=== PATIENT | female | born 1995 | race African-American/Black ===

== ENCOUNTER 2021-06-03 16:03 | Emergency (ER) | payer BC, SELFPAY ==
[2021-06-03 16:06] VITALS: BP 113/78; PULSE 86; RESP 16; TEMP 36.8; O2SAT 100
--- NOTE | 2021-06-03 17:00 | ED.NAVMDI ---
HPI - Nausea/Vomiting/Diarrhea General Chief complaint: Nausea/Vomiting/Diarrhea Stated complaint: headache, nausea Time Seen by Provider: 06/03/21 16:25 Source: patient Mode of arrival: ambulatory Limitations: no limitations History of Present Illness HPI Narrative: Patient is a 26-year-old female complaining of frontal headache accompanied by nausea and vomiting that started 3 days ago. Patient describes her headache as dull, mild, 3 out of 10, nonradiating. Patient denies any dizziness, neck pain or stiffness, speech or visual disturbance, focal weakness or numbness, unsteady gait, fever or chills. Related Data Allergies Allergy/AdvReac Type Severity Reaction Status Date / Time No Known Allergies Allergy Verified 06/03/21 16:09 Review of Systems Review of Systems: All systems reviewed & are unremarkable except as noted in HPI and below Constitutional: Constitutional: Denies body ache(s), Denies chills, Denies excessive sweating, Denies fatigue, Denies fever(s), Denies headache(s), Denies lethargy, Denies malaise, Denies weakness and Denies weight loss Eyes: Eyes: Denies blurry vision, Denies change in vision and Denies loss of vision ENT: Denies dizziness, Denies ear discharge, Denies headache(s), Denies lip swelling, Denies epistaxis, Denies nasal congestion, Denies neck pain, Denies throat swelling and Denies tongue swelling Cardiovascular: Cardiovascular: Denies chest pain, Denies chest pain at rest, Denies chest pain with activity, Denies diaphoresis, Denies rapid heart rate, Denies edema, Denies irregular heart rhythm, Denies lightheadedness, Denies palpitations, Denies dyspnea and Denies dyspnea on exertion Respiratory: Respiratory: Denies chest congestion, Denies cough, Denies hemoptysis, Denies dyspnea and Denies dyspnea on exertion Gastrointestinal: Gastrointestinal: Denies abdominal pain, Denies melena, Denies hematochezia, Denies diarrhea and Denies hematemesis Musculoskeletal: Musculoskeletal: Denies abnormal gait, Denies deformity, Denies joint swelling, Denies limited range of motion, Denies neck pain and Denies numbness Neurologic: Denies Abnormal speech present, Denies abnormal gait, Denies confusion, Denies dizziness, Denies focal weakness, Denies loss of vision, Denies numbness, Denies Other visual disturbances, Denies Sensory deficit (Neuro) and Denies weakness Psychiatric: Psychiatric: Denies confusion, Denies depression, Denies auditory hallucinations, Denies homicidal ideation and Denies suicidal ideation Endocrine: Endocrine: Denies cold intolerance, Denies excessive sweating, Denies fatigue, Denies heat intolerance and Denies palpitations Hematologic/Lymphatic: Hematologic/Lymphatic: Denies easy bleeding and Denies easy bruising Allergic/Immunologic: Allergic/Immunologic: Denies lip swelling, Denies throat swelling and Denies tongue swelling PMFSH Comments Past medical history: None Family history: Negative for aneurysm, dissection, stroke, heart attack Social history: Non-smoker, occasional EtOH use, no drug use Exam Const: General: cooperative, healthy appearing, comfortable, no acute distress, well developed, alert and awake; No confusion Orientation/consciousness: oriented to person, oriented to place, oriented to time, patient oriented x3 and No confusion Limitations: no limitations HENMT: Head: normal to inspection, normocephalic and atraumatic Ears: hearing grossly normal bilaterally, TM normal on the right and TM normal on the left General nose exam: Normal external nose present, Normal nares present and No nasal discharge present Face and sinus: normal facial exam Mouth: Yes Normal oral and palatal mucosa present, Yes lip normal, Yes tongue normal and Yes oropharynx normal Throat: posterior oropharynx normal, tonsils normal and uvula midline Eyes: General: appearance normal, both eyes and all related structures Pupils: Equal, round and reactive pupils present EOM: EOMs intact bilaterally
[2021-06-03] MEDS: SODIUM CHLORIDE 0.9% IV 1,000 ML 999 ML IV CONT (17:29)
[2021-06-03] MEDS: PROMETHAZINE HCL 25 MG/ML AMPUL 12.5 MG IV PUSH (17:32)
[2021-06-03 17:41] LABS: Basophils Percent Auto 0.8 % (0.2-1.2); Eosinophils Absolute Auto 0.1 K/mm3 (0-0.3); Hematocrit 31.2 % (37.0-47.0); Hemoglobin 11.5 g/dL (12.0-15.0); Immature Granulocyte Absolute 0.01 K/mm3 (0.00-0.031); Immature Granulocyte Percent A 0.2 % (0-0.5); Lymphocytes Absolute Auto 2.42 K/mm3 (0.9-3.2); Lymphocytes Percent Auto 50.7 % (18.3-44.2); Mean Corpuscular HGB Conc 36.9 g/dl (32-36); Mean Corpuscular Hemoglobin 31.9 pg (26-34); Mean Corpuscular Volume 86.4 fl (80-100); Mean Platelet Volume 8.6 fl (7.4-10.4); Monocytes Absolute Auto 0.7 K/mm3 (0.1-0.6); Monocytes Percent Auto 15.5 % (2.6-8.5); Neutrophils Absolute Auto 1.5 K/mm3 (1.3-6.7); Neutrophils Percent Auto 31.8 % (45.5-73.1); Platelet Count Result 193 k/mm3 (150-375); Red Blood Count 3.61 M/mm3 (4.2-5.4); Red Cell Distribution Width 13.2 % (11.5-14.5); White Blood Count 4.8 K/mm3 (4.5-10.0)
[2021-06-03 17:53] LABS: Alanine Aminotransferase 15 U/L (4-35); Albumin Level 3.9 g/dL (3.5-5.1); Alkaline Phosphatase 47 U/L (38-126); Anion Gap 1 mmol/L (8-16); Aspartate Amino Transferase 24 U/L (14-36); Bilirubin,Total 0.4 mg/dL (0.2-1.3); Blood Urea Nitrogen 9 mg/dL (7-17); Calcium 8.5 mg/dL (8.4-10.2); Carbon Dioxide 24 mmol/L (22-30); Chloride 106 mmol/L (98-107); Estimated CRCL calculation 94 ml/min; Estimated Glomerular Filt Rate > 60; Glucose 92 mg/dL (65-110); Lipase 47 U/L (23-300); Potassium 3.3 mmol/L (3.4-5.0); Sodium 131 mmol/L (137-145)
[2021-06-03 18:01] LABS: Add Urine Microscopic? YES; Appearance Urine Clear (Clear); Bacteria Urine Trace /hpf; Bilirubin Urine Negative (Negative); Blood Urine 1+ (Negative); Color Urine Yellow (Yellow); Glucose Urine UA Negative (Negative); Ketones Urine Negative (Negative); Leukocyte Esterase Ur Negative LEU/UL (Negative); Mucus Urine Heavy /lpf; Nitrate Urine Negative (Negative); Protein Urine Negative (Negative); Specific Grav Ur 1.027 (1.001-1.035); Squamous Epithelial Cell Urine Moderate /hpf (Few)
[2021-06-03 18:08] LABS: Atypical Lymphocytes Present; Platelet Estimate Adequate (Adequate)
[2021-06-03 18:23] VITALS: BP 103/67; PULSE 78; RESP 18; O2SAT 100
--- NOTE | 2021-06-03 19:01 | PC.NURSE ---
Talked to Lonnie in lab at 19:01 to add on Beta HCG Quant
== END 2021-06-03 19:11 | disposition home or self-care (01) ==
PROVIDERS: Emergency Provider Emergency Medicine
DX: O21.9 Vomiting of pregnancy, unspecified (principal); O23.40 Unspecified infection of urinary tract in pregnancy, unspecified trimester; Z3A.00 Weeks of gestation of pregnancy not specified
CPT/HCPCS: 36415; 80053; 81001; 81025; 83690; 84702; 85025; 96361; 96374; 99284; J2550; J7030

== ENCOUNTER 2021-06-27 08:56 | Emergency (ER) | payer BC, SELFPAY ==
[2021-06-27 09:07] VITALS: BP 110/65; PULSE 79; RESP 16; TEMP 36.9; O2SAT 99
--- NOTE | 2021-06-27 09:10 | ED.URI ---
HPI - URI/Sore Throat General Chief Complaint: Upper Respiratory Infection Stated Complaint: nausea/caputo/no appetite Time Seen by Provider: 06/27/21 09:10 Source: patient Mode of arrival: ambulatory Limitations: no limitations Related Data Allergies Allergy/AdvReac Type Severity Reaction Status Date / Time No Known Allergies Allergy Verified 06/03/21 16:09 Course Vital Signs Vital signs: Vital Signs Temperature 36.9 C 06/27/21 09:07 Pulse Rate 79 06/27/21 09:07 Respiratory Rate 16 06/27/21 09:07 Blood Pressure 110/65 06/27/21 09:07 Pulse Oximetry 99 06/27/21 09:07 Temperature 36.9 C 06/27/21 09:07 Pulse Rate 79 06/27/21 09:07 Respiratory Rate 16 06/27/21 09:07 Blood Pressure 110/65 06/27/21 09:07 Pulse Oximetry 99 06/27/21 09:07 Discharge Plan Discharge Prescriptions: No Action pyridoxine (vitamin B6) 50 mg tablet 50 mg PO TID Qty: 15 RF: 0 cephalexin 250 mg capsule 250 mg PO Q12H 3 Days Qty: 6 RF: 0
--- NOTE | 2021-06-27 09:29 | ED.GENADULT ---
HPI - General Adult General Chief complaint: Nausea/Vomiting/Diarrhea Stated complaint: nausea/caputo/no appetite Time Seen by Provider: 06/27/21 09:10 Source: patient Mode of arrival: ambulatory Limitations: no limitations History of Present Illness HPI narrative: 26 yo F presents with c/o fatigue, N/V, no appetite, headaches for 1.5 wks. About two wks ago pt had an . thinks she was 6 wks at that time. [facility] Denies vaginal bleeding. Denies ABD pain. Afebrile. All systems reviewed and negative except as noted above. Related Data Allergies Allergy/AdvReac Type Severity Reaction Status Date / Time No Known Allergies Allergy Verified 06/03/21 16:09 Review of Systems Review of Systems: CONSTITUTIONAL: Denies fever, chills, or sweats. Reports fatigue, Decreased appetite. EYES: Denies visual changes, redness, or discharge. ENT: Denies rhinorrhea, congestion, sore throat, or otalgia. CARDIOVASCULAR: Denies chest pain, palpitations, or edema. RESPIRATORY: Denies cough or dyspnea. GASTROINTESTINAL: Denies abdominal pain. reports nausea, vomiting. Denies diarrhea. GENITOURINARY: Denies dysuria or hematuria. SKIN: Denies rash or itching. MUSCULOSKELETAL: Denies back pain, joint pain, or myalgia. NEUROLOGIC: Denies headache, numbness, or weakness. PSYCHIATRIC: Denies anxiety or depression. All other systems reviewed are negative, except as documented in HPI. PMFSH Comments At time of signature, agree with nursing past medical, surgical, social and family history. There is no relevant family history pertinent to the presenting complaint. Exam Narrative: GENERAL: This is a well-nourished, well-developed patient, in no apparent distress. HEAD: normocephalic, atraumatic. EYES: PERRL. Sclera clear/white. Vision is grossly intact. EARS: External ears normal, auditory canals clear and without drainage, TMs normal without perforation. Hearing grossly intact. NOSE: External nose normal with no obvious nasal discharge, nares without redness, no rhinorrhea. THROAT: Mucous membranes moist, posterior pharynx clear. NECK: Neck supple, non-tender without lymphadenopathy, masses or thyromegaly. CARDIOVASCULAR: Regular rate and rhythm without murmurs, gallops, or rubs. RESPIRATORY: Clear to auscultation. Breath sounds equal bilaterally. No wheezes, rales, or rhonchi. GASTROINTESTINAL: Abdomen soft, non-tender, nondistended. Bowel sounds are active. No hepato-splenomegaly, or palpable masses. No guarding. SKIN: warm, Dry, intact with no suspicious lesions or rash, good texture and turgor. NEURO: awake, alert, and oriented to person, place and time. There were no obvious focal neurologic abnormalities. EXTREMITIES: No joint tenderness, effusion, or edema noted. No calf tenderness. Negative Homans sign bilaterally. BACK: Nontender without deformity. No CVA tenderness. Course Course Level of Care: Express Care Visit Vital Signs Vital signs: Vital Signs Temperature 36.9 C 06/27/21 09:07 Pulse Rate 79 06/27/21 09:07 Respiratory Rate 16 06/27/21 09:07 Blood Pressure 110/65 06/27/21 09:07 Pulse Oximetry 99 06/27/21 09:07 Temperature 36.9 C 06/27/21 09:07 Pulse Rate 79 06/27/21 09:07 Respiratory Rate 16 06/27/21 09:07 Blood Pressure 110/65 06/27/21 09:07 Pulse Oximetry 99 06/27/21 09:07 Reviewed Transfer Transfered to: [place] Transfer rationale: further evaluation with lab and ultrasound for retained products Accepting physician: myla Weldon Medical Decision Making MDM Narrative Medical decision making narrative: Patient is aware of diagnosis, understands and agrees to treatment plan. Anticipatory guidance given. Patient agrees to follow-up as directed and is aware of reasons to seek care at the emergency department. Portions of this record may have been created with voice recognition software Pt had medication induced about 2 w
== END 2021-06-27 09:43 | disposition short-term general hospital (02) ==
PROVIDERS: Emergency Provider Nurse Practitioner Family
DX: R53.83 Other fatigue (principal); R11.2 Nausea with vomiting, unspecified
CPT/HCPCS: 81003; 81025; 99212; G0463

== ENCOUNTER 2021-06-27 09:59 | Emergency (ER) | payer BC, SELFPAY ==
--- NOTE | ~2021-06-27 | CT_ITS ---
EXAMINATION: CT brain wo con INDICATION: Headache COMPARISON: None TECHNIQUE: Standard unenhanced head CT. The dose-length product (DLP) was 605.33 mGy-cm. The mA was a djusted according to patient size. Iterative reconstruction technique was employed. FINDINGS: There is no intracranial hemorrhage, acute infarction, or abnormal mass lesion. The ventric les are normal. There is no abnormal mass effect or midline shift. The hayden-white matter differentiat ion is normal. The basal cisterns are patent. The orbits are normal. The paranasal sinuses, mastoids and calvarium are normal. IMPRESSION: 1. No acute intracranial abnormality. Reviewed, dictated and finalized at location B. [employer]
[2021-06-27 10:03] VITALS: BP 110/78; PULSE 87; RESP 18; TEMP 36; O2SAT 100
[2021-06-27 11:00] VITALS: BP 107/70; PULSE 85; RESP 14; O2SAT 100
--- NOTE | 2021-06-27 11:07 | ED.HA ---
HPI - Headache General Chief Complaint: Headache Stated Complaint: nausea, headache Time Seen by Provider: 06/27/21 10:52 Source: patient Mode of arrival: ambulatory Limitations: no limitations History of Present Illness HPI Narrative: Patient is 26 years old -[place] female been complaining of intermittent frontal headache aching for 1 and half week. Maximum 6 out of 10, patient denies aggravating factors, sometimes gets better on Aleve. 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 Patient reports that her headache is associated with nausea and decreased appetite and lack of sleep. Patient denies any fever, chills, chest pain, shortness of breath, back pain, abdominal pain or urinary symptoms Related Data Allergies Allergy/AdvReac Type Severity Reaction Status Date / Time No Known Allergies Allergy Verified 06/27/21 11:19 Review of Systems Review of Systems: CONSTITUTIONAL: Denies fever, chills, or sweats. EYES: Denies visual changes, redness, or discharge. ENT: Denies rhinorrhea, congestion, sore throat, or otalgia. CARDIOVASCULAR: Denies chest pain, palpitations, or edema. RESPIRATORY: Denies cough or dyspnea. GASTROINTESTINAL: Denies abdominal pain, nausea, vomiting, or diarrhea. GENITOURINARY: Denies dysuria or hematuria. SKIN: Denies rash or itching. MUSCULOSKELETAL: Denies back pain, joint pain, or myalgia. NEUROLOGIC: Denies headache, numbness, or weakness. PSYCHIATRIC: Stress, lack of sleep Exam Narrative: General appearance: Well-developed, well-nourished, laying down in bed, comfortable, not in any pain or distress Skin: Normal color Head: Normocephalic, nontraumatic Eyes: Clear conjunctiva ENT: Oropharynx normal, ears normal, nose normal Neck: Supple, nontender Chest and respiratory: Airway patent, no respiratory distress, no accessory muscle use Heart: Regular rate/rhythm Abdomen: Soft, nontender, no organomegaly, quiet bowel sounds Vascular: Normal peripheral pulses, normal capillary refill. Musculoskeletal: Normal range of motion, nontender back Neurologic: Alert and oriented ?3, CH[employer] SEAT [employer]ER is normal as tested, no gross motor deficit Course Course Emergency Course: Stable Vital Signs Vital signs: Vital Signs Temperature 36.0 C L 06/27/21 10:03 Pulse Rate 87 06/27/21 10:03 Respiratory Rate 18 06/27/21 10:03 Blood Pressure 110/78 06/27/21 10:03 Pulse Oximetry 100 06/27/21 10:03 Temperature 36.0 C L 06/27/21 10:03 Pulse Rate 80 06/27/21 12:00 Respiratory Rate 14 06/27/21 12:00 Blood Pressure 98/58 L 06/27/21 12:00 Pulse Oximetry 100 06/27/21 12:00 MDM - Headache Differential Diagnosis Differential diagnosis: Likely migraine, tension headache and headache Lab Data Result diagrams: 06/27/21 11:20 06/27/21 11:20 Labs: Lab Results 06/27/21 06/27/21 06/27/21 Range/Units 11:20 11:20 13:02 WBC 6.4 (4.5-10.0) K/mm3 RBC 3.40 L (4.2-5.4) M/mm3 Hgb 10.8 L (12.0-15.0) g/dL Hct 29.5 L (37.0-47.0) % MCV 86.8 (80-100) fl MCH 31.8 (26-34) pg MCHC 36.6 H (32-36) g/dl RDW 13.3 (11.5-14.5) % Plt Count 196 (150-375) k/mm3 MPV 8.3 (7.4-10.4) fl Immature Gran % (Auto) 0.2 (0-0.5) % Neut % (Auto) 17.9 L (45.5-73.1) % Lymph % (Auto) 69.7 H (18.3-44.2) % [place] % (Auto) 10.3 H (2.6-8.5) % Eos % (Auto) 1.6 (0-4.4) % Baso % (Auto) 0.3 (0.2-1.2) % Lymph # (Auto) 4.45 H (0.9-3.2) K/mm3 [place] # (Auto) 0.7 H (0.1-0.6) K/mm3 Eos # (Auto) 0.1 (0-0.3) K/mm3 Baso # (Auto) 0.0 (0.0-0.1) K/mm3 Abs Immat Gran (auto) 0.01 (0.00-0.031)
--- NOTE | 2021-06-27 11:14 | PC.NURSE ---
pt. to ct
[2021-06-27] MEDS: KETOROLAC 30 MG/ML VIAL (*BKC) IV PUSH (11:20)
[2021-06-27] MEDS: METOCLOPRAMIDE HCL INJ 10 MG/2 ML VIAL IV PUSH (11:20)
[2021-06-27] MEDS: diphenhydrAMINE HCl INJ 50 MG/ML VIAL 25 MG IV PUSH (11:20)
[2021-06-27] MEDS: SODIUM CHLORIDE 0.9% IV 1,000 ML 999 ML IV CONT (11:21)
[2021-06-27 11:30] LABS: Basophils Percent Auto 0.3 % (0.2-1.2); Eosinophils Absolute Auto 0.1 K/mm3 (0-0.3); Eosinophils Percent Auto 1.6 % (0-4.4); Hematocrit 29.5 % (37.0-47.0); Hemoglobin 10.8 g/dL (12.0-15.0); Immature Granulocyte Absolute 0.01 K/mm3 (0.00-0.031); Immature Granulocyte Percent A 0.2 % (0-0.5); Lymphocytes Absolute Auto 4.45 K/mm3 (0.9-3.2); Lymphocytes Percent Auto 69.7 % (18.3-44.2); Mean Corpuscular HGB Conc 36.6 g/dl (32-36); Mean Corpuscular Hemoglobin 31.8 pg (26-34); Mean Corpuscular Volume 86.8 fl (80-100); Mean Platelet Volume 8.3 fl (7.4-10.4); Monocytes Absolute Auto 0.7 K/mm3 (0.1-0.6); Monocytes Percent Auto 10.3 % (2.6-8.5); Neutrophils Absolute Auto 1.1 K/mm3 (1.3-6.7); Neutrophils Percent Auto 17.9 % (45.5-73.1); Platelet Count Result 196 k/mm3 (150-375); Red Cell Distribution Width 13.3 % (11.5-14.5); White Blood Count 6.4 K/mm3 (4.5-10.0)
[2021-06-27 11:48] LABS: Alanine Aminotransferase 54 U/L (4-35); Albumin Level 3.9 g/dL (3.5-5.1); Alkaline Phosphatase 46 U/L (38-126); Anion Gap 7 mmol/L (8-16); Aspartate Amino Transferase 37 U/L (14-36); Bilirubin,Total 0.3 mg/dL (0.2-1.3); Blood Urea Nitrogen 12 mg/dL (7-17); Calcium 8.3 mg/dL (8.4-10.2); Carbon Dioxide 23 mmol/L (22-30); Chloride 105 mmol/L (98-107); Estimated CRCL calculation 129 ml/min; Estimated Glomerular Filt Rate > 60; Glucose 86 mg/dL (65-110); Potassium 3.7 mmol/L (3.4-5.0); Sodium 135 mmol/L (137-145)
[2021-06-27 12:00] VITALS: BP 98/58; PULSE 80; RESP 14; O2SAT 100
--- NOTE | 2021-06-27 12:47 | PC.NURSE ---
pt. attempting to void
[2021-06-27 13:25] LABS: Add Urine Microscopic? YES; Appearance Urine Clear (Clear); Bacteria Urine Trace /hpf; Bilirubin Urine Negative (Negative); Blood Urine 1+ (Negative); Color Urine Yellow (Yellow); Glucose Urine UA Negative (Negative); Ketones Urine Negative (Negative); Leukocyte Esterase Ur Negative LEU/UL (Negative); Mucus Urine Rare /lpf; Nitrate Urine Negative (Negative); Protein Urine Negative (Negative); RBC Urine 0-2 /hpf (0-2); Specific Grav Ur 1.013 (1.001-1.035); Squamous Epithelial Cell Urine Rare /hpf (Few); Urobilinogen Urine Negative mg/dL (<2.0); WBC Urine 0-3 /hpf
[2021-06-27 14:39] VITALS: BP 107/70; PULSE 76; RESP 16; O2SAT 99
== END 2021-06-27 14:41 | disposition home or self-care (01) ==
PROVIDERS: Emergency Provider Emergency Medicine
DX: R51.9 Headache, unspecified (principal)
CPT/HCPCS: 36415; 70450; 80053; 81001; 81003; 81025; 85025; 96361; 96374; 96375; 99284; J1200; J1885; J2765; J7030

== ENCOUNTER 2021-09-15 13:27 | Emergency (ER) | payer BC, SELFPAY ==
--- NOTE | 2021-09-15 13:34 | ED.FEMALEGU ---
HPI - Female Genitourinary General Chief complaint: Urogenital-Female Stated complaint: uti Time Seen by Provider: 09/15/21 13:34 Source: patient Mode of arrival: ambulatory Limitations: no limitations History of Present Illness HPI Narrative: 26-year-old female presents with complaint of urinary frequency, urgency, dysuria since yesterday. Reports today she has having some abdominal cramping. No vaginal bleeding. No fever chills. No nausea vomit diarrhea. Patient had in May. Has been following up with her OB due to elevated hCG levels. Is scheduled for an ultrasound next week. All systems reviewed and negative except as noted above. Related Data Allergies Allergy/AdvReac Type Severity Reaction Status Date / Time No Known Allergies Allergy Verified 09/15/21 13:32 Review of Systems Review of Systems: CONSTITUTIONAL: Denies fever, chills, or sweats. EYES: Denies visual changes, redness, or discharge. ENT: Denies rhinorrhea, congestion, sore throat, or otalgia. CARDIOVASCULAR: Denies chest pain, palpitations, or edema. RESPIRATORY: Denies cough or dyspnea. GASTROINTESTINAL: Denies abdominal pain, nausea, vomiting, or diarrhea. GENITOURINARY: Reports frequency, urgency, dysuria. Denies hematuria. SKIN: Denies rash or itching. MUSCULOSKELETAL: Denies back pain, joint pain, or myalgia. NEUROLOGIC: Denies headache, numbness, or weakness. PSYCHIATRIC: Denies anxiety or depression. All other systems reviewed are negative, except as documented in HPI. PMFSH Comments At time of signature, agree with nursing past medical, surgical, social and family history. There is no relevant family history pertinent to the presenting complaint. Exam Narrative: GENERAL: This is a well-nourished, well-developed patient, in no apparent distress. HEAD: normocephalic, atraumatic. EYES: PERRL. Sclera clear/white. Vision is grossly intact. EARS: External ears normal NOSE: External nose normal NECK: Neck supple, non-tender without lymphadenopathy, masses or thyromegaly. CARDIOVASCULAR: Regular rate and rhythm without murmurs, gallops, or rubs. RESPIRATORY: Clear to auscultation. Breath sounds equal bilaterally. No wheezes, rales, or rhonchi. SKIN: warm, Dry, intact with no suspicious lesions or rash, good texture and turgor. NEURO: awake, alert, and oriented to person, place and time. There were no obvious focal neurologic abnormalities. EXTREMITIES: Normal range of motion to all extremities. BACK:No CVA tenderness. Course Course Level of Care: Express Care Visit Vital Signs Vital signs: Vital Signs Temperature 36.9 C 09/15/21 13:42 Pulse Rate 84 09/15/21 13:42 Respiratory Rate 16 09/15/21 13:42 Blood Pressure 104/56 L 09/15/21 13:42 Pulse Oximetry 99 09/15/21 13:42 Oxygen Delivery Room Air 09/15/21 13:42 Temperature 36.9 C 09/15/21 13:42 Pulse Rate 84 09/15/21 13:42 Respiratory Rate 16 09/15/21 13:42 Blood Pressure 104/56 L 09/15/21 13:42 Pulse Oximetry 99 09/15/21 13:42 Oxygen Delivery Room Air 09/15/21 13:42 Reviewed MDM - Female Genitourinary MDM Narrative Medical decision making narrative: Patient is aware of diagnosis, understands and agrees to treatment plan. Anticipatory guidance given. Patient agrees to follow-up as directed and is aware of reasons to seek care at the emergency department. Portions of this record may have been created with voice recognition software Lab Data Labs: Urine Glucose Negative Reference Range: Negative Urine Bilirubin Negative Reference Range: Negative Urine Ketone Trace Reference Range: Negative Urine Specific [place] 1.025 Reference Range:1.001-1.035
[2021-09-15 13:42] VITALS: BP 104/56; PULSE 84; RESP 16; TEMP 36.9; O2SAT 99
== END 2021-09-15 13:51 | disposition home or self-care (01) ==
PROVIDERS: Emergency Provider Nurse Practitioner Family
DX: N39.0 Urinary tract infection, site not specified (principal)
CPT/HCPCS: 81003; 87077; 87086; 87186; 99213; G0463

== ENCOUNTER 2022-02-20 10:52 | Emergency (ER) | payer BC, SELFPAY ==
[2022-02-20 10:59] VITALS: BP 113/69; PULSE 90; RESP 16; TEMP 36.9; O2SAT 98
--- NOTE | 2022-02-20 11:28 | ED.URI ---
HPI - URI/Sore Throat General Chief Complaint: Upper Respiratory Infection Stated Complaint: uri Time Seen by Provider: 02/20/22 11:28 Source: patient, RN notes reviewed and old records reviewed Mode of arrival: ambulatory Limitations: no limitations History of Present Illness HPI Narrative: 26-year-old female presents to the [facility] with complaints 2 days of body aches, feeling feverish, fatigue, headache and sore throat. Has tried a couple [id number] products such as Mucinex with minimal relief. Reports son was sick last week. She just started with symptoms on Saturday. Related Data Home Medications Medication Instructions Recorded Confirmed medroxyprogesterone 150 mg/mL 150 mg IM [id number] 02/20/22 02/20/22 intramuscular syringe Allergies Allergy/AdvReac Type Severity Reaction Status Date / Time No Known Allergies Allergy Verified 02/20/22 11:38 Review of Systems Review of Systems: All systems reviewed & are unremarkable except as noted in HPI and below Constitutional: Constitutional: Reports as per HPI, Reports chills, Reports fatigue and Reports fever(s) Eyes: Eyes: Reports no additional eye complaints ENT: Reports as per HPI Cardiovascular: Cardiovascular: Reports no additional cardiovascular complaints Respiratory: Respiratory: Reports no additional respiratory complaints Gastrointestinal: Gastrointestinal: Reports no additional gastrointestinal complaints Musculoskeletal: Musculoskeletal: Reports no additional musculoskeletal complaints Integumentary/Breasts: Skin/Breast: Reports system reviewed and no additional complaints, except as docu Neurologic: Reports system reviewed and no additional complaints, except as documented Psychiatric: Psychiatric: Reports no additional psychiatric complaints Allergic/Immunologic: Allergic/Immunologic: Reports no additional allergic/immunologic complaints PMFSH Past Medical History Medical History (Updated 02/20/22 @ 19:34 by Angelique Olson APRN) No significant medical problems Surgical History Surgical History (Updated 02/20/22 @ 19:34 by Angelique Olson APRN) No pertinent past surgical history Comments At the time of my signature, I reviewed and agree with the nursing past medical, surgical, social, and family history. There is no relevant family history pertinent to the patient complaint. Exam Const: General: no acute distress, alert, ill appearing acutely (Mild) and well nourished Nutritional Appearance: well nourished Orientation/consciousness: patient oriented x3 Limitations: no limitations HENMT: Head: normal to inspection Ears: external ears normal, TM's normal bilaterally and EAC's normal Face/Nose/Sinus: Normal external nose present and Normal nares present Face and sinus: normal facial exam Throat: posterior oropharynx normal and uvula midline Eyes: General: appearance normal, both eyes and all related structures Conjunctivae: conjunctivae normal Pupils: Equal, round and reactive pupils present Neck: Neck: normal visual inspection, no lymphadenopathy and no meningeal signs Chest: Chest palpation & inspection: normal inspection of the chest Resp: Effort & Inspection: normal respiratory effort and no use of accessory muscles Auscultation: clear to auscultation bilaterally, no crackles, no rales, no rhonchi and no wheezes Cardio: Rate: regular rate Rhythm: regular rhythm Skin: General skin exam: normal color Rashes: no rashes Wounds: no wounds Neuro: General: patient oriented x3, moves all extremities, no meningeal signs and no focal motor deficits Cranial nerves: Yes Equal, round and reactive pupils present Speech: normal speech Gait exam (Neuro): Normal gait present Extrem: General: normal to inspection, full ROM and capillary refill normal Psych: Appearance: grossly normal and well kempt Mental Status: mental status grossly normal Affect: normal affect Attitude: cooperative Thought content: Yes Normal
== END 2022-02-20 12:18 | disposition home or self-care (01) ==
PROVIDERS: Emergency Provider Nurse Practitioner
DX: B34.9 Viral infection, unspecified (principal); Z20.822 Contact with and (suspected) exposure to COVID-19
CPT/HCPCS: 87081; 87426; 87804; 87880; 99213; C9803; G0463

== ENCOUNTER 2022-05-14 10:10 | Emergency (ER) | payer BC, SELFPAY ==
[2022-05-14 10:34] VITALS: BP 114/72; PULSE 88; RESP 16; TEMP 37.2; O2SAT 100
--- NOTE | 2022-05-14 12:08 | ED.GENADULT ---
HPI - General Adult General Chief complaint: Extremity Problem,Nontraumatic Stated complaint: hip pain x 2 weeks Time Seen by Provider: 05/14/22 11:14 History of Present Illness HPI narrative: Patient is a 27-year-old female who presents ER with left-sided hip pain. Ongoing for 2 weeks. Radiates down into the knee. Occasionally is tingling. Worse with out of bed and picking up her child. No recent trauma or injury. No saddle anesthesia. No difficulty with urination or defecation. No improvement with lidocaine patches. Has not had symptoms like this since having epidurals several years ago. She is without fevers or chills or sweats. Related Data Home Medications Medication Instructions Recorded Confirmed medroxyprogesterone 150 mg/mL 150 mg IM [id number] 02/20/22 02/20/22 intramuscular syringe Allergies Allergy/AdvReac Type Severity Reaction Status Date / Time No Known Allergies Allergy Verified 05/14/22 11:20 Review of Systems Constitutional: Constitutional: Denies chills, Denies fatigue and Denies fever(s) Musculoskeletal: Musculoskeletal: Denies back pain, Reports arthralgias and Denies joint swelling Neurologic: Denies focal weakness and Reports numbness (Occasional tingling) PMFSH Past Medical History Medical History (Updated 05/14/22 @ 12:08 by Aureliano Ruiz MD) No significant medical problems Surgical History Surgical History (Updated 02/20/22 @ 19:34 by Angelique Olson APRN) No pertinent past surgical history Exam Narrative: GENERAL: Well-appearing, well-nourished, and in no acute distress. HEAD: Normocephalic, atraumatic. CHEST: Clear to auscultation. No respiratory distress. HEART: Regular rate and rhythm. No murmur heard. Normal peripheral pulses. Back: No reproducible tenderness midline T/L-spine or paraspinal musculature. There is mild discomfort in the left sacroiliac region. EXTREMITIES: Normal range of motion. No edema. No tenderness over the hips bilaterally or knee. Positive straight leg raise on the left side. Negative straight leg raise on the right. SKIN: Warm, dry, no rash. NEURO: Alert and oriented x3. PSYCH: Normal mood and affect. Course Course Emergency Course: Imaging not felt to be indicated as its time as there is no traumatic injury. Spinal injury or infection also felt unlikely given symptoms. Patient seems to have sciatica and will be started on anti-inflammatories muscle relaxers. Discussed need for follow-up with PCP as she may require physical therapy or additional care. Vital Signs Vital signs: Vital Signs Temperature 99 F 05/14/22 10:34 Pulse Rate 88 05/14/22 10:34 Respiratory Rate 16 05/14/22 10:34 Blood Pressure 114/72 05/14/22 10:34 Pulse Oximetry 100 05/14/22 10:34 Oxygen Delivery Room Air 05/14/22 10:34 Temperature 99 F 05/14/22 10:34 Pulse Rate 88 05/14/22 10:34 Respiratory Rate 16 05/14/22 10:34 Blood Pressure 114/72 05/14/22 10:34 Pulse Oximetry 100 05/14/22 10:34 Oxygen Delivery Room Air 05/14/22 10:34 Medical Decision Making Vital Signs Vital Signs: Vital Signs Temperature 99 F 05/14/22 10:34 Pulse Rate 88 05/14/22 10:34 Respiratory Rate 16 05/14/22 10:34 Blood Pressure 114/72 05/14/22 10:34 Pulse Oximetry 100 05/14/22 10:34 Oxygen Delivery Room Air 05/14/22 10:34 Temperature 99 F 05/14/22 10:34 Pulse Rate 88 05/14/22 10:34 Respiratory Rate 16 05/14/22 10:34 Blood Pressure 114/72 05/14/22 10:34 Pulse Oximetry 100 05/14/22 10:34 Oxygen Delivery Room Air 05/14/22 10:34 Discharge Plan Discharge Clinical Impression: Sciatica Patient Disposition: Home, Self-Care Condition: Stable Instructions: Sciatica (ED) Additional Instructions: Return to the ER if you have increased pain in your back, you develop lower extremity weakness/numbness/paralysis, you have numbness or tingling in your private parts, or you are unabl
== END 2022-05-14 12:48 | disposition home or self-care (01) ==
PROVIDERS: Emergency Provider Emergency Medicine
DX: M54.32 Sciatica, left side (principal)
CPT/HCPCS: 99283

== ENCOUNTER 2023-03-31 14:54 | Emergency (ER) | payer OTHER, SELFPAY ==
--- NOTE | ~2023-03-31 | CT_ITS ---
EXAMINATION: CT abdomen pelvis w con DATE: 03/31/2023 16:16 INDICATION: APPENDICITIS, OVARIAN CYST TECHNIQUE: Computed tomography (CT) of the abdomen and pelvis was performed with intravenous contrast . Automated exposure control and iterative reconstruction technique were employed. The dose-length pr oduct was 255.27 mGy-cm. COMPARISON: None. FINDINGS: Lower thorax: Unremarkable Liver: Subcentimeter right lobe hypodensity, too small to characterize, may represent a small cyst or hemangioma. Biliary/Gallbladder: Gallbladder is normal. No bile duct dilation. Pancreas: No mass or duct dilation. Spleen: Normal. Adrenals:No mass. Kidneys: No suspicious mass, obstructing stone, or hydronephrosis. Simple left midpole cyst. GI tract: No small or large bowel dilation. Mild distal sigmoid and rectal wall edema. Appendix not c onfidently visualized due to the paucity of abdominal fat. Mesentery/Peritoneum: No ascites, mass, or free air. Retroperitoneum: No mass. Pelvis: Generalized edema/inflammation in the pelvic fat. Small volume free pelvic fluid. Fluid diste nded endometrial cavity. Hypoenhancing, boggy appearing cervix. Bilateral ovaries are somewhat diffic ult to visualize discretely. No definite adnexal mass. Soft Tissues: Soft tissues and body wall unremarkable. Bones: No acute osseous finding. IMPRESSION: Appendix not visualized. Generalized edema/inflammation in the pelvic fat. Small volume free pelvic fluid. Suggestion of cervi dinh edema, correlate for findings of cervicitis. Fluid distended endometrium. Bilateral ovaries are d ifficult to discretely visualized but no definite adnexal mass is detected. Consider pelvic ultrasoun d. Possible distal sigmoid/rectal colitis, versus reactive edema. Reviewed, dictated and finalized at location K. [employer] SUPERINTENDENT IMPRESSION: Appendix not visualized. Generalized edema/inflammation in the pelvic fat. Small volume free pelvic flui d. Suggestion of cervical edema, correlate for findings of cervicitis. Fluid di stended endometrium. Bilateral ovaries are difficult to discretely visualized b ut no definite adnexal mass is detected. Consider pelvic ultrasound. Possible distal sigmoid/rectal colitis, versus reactive edema.
--- NOTE | ~2023-03-31 | US_ITS ---
EXAMINATION: US pelvic complete w TV DATE: 03/31/2023 18:06 INDICATION: R/O TORSION TECHNIQUE: Multiple transabdominal and endovaginal sonographic images of the pelvis were obtained. COMPARISON: CT abdomen pelvis, same date. FINDINGS: Uterus: 7.5 x 3.8 x 5.6 cm. Endometrial complex measures 3 mm, not including the endometrial fluid. Right Ovary: 2.0 x 2.8 x 2.7 cm. Vascular flow is present. 1.5 cm simple adnexal cyst, possible parao varian cyst versus artifact. Left Ovary: 1.8 x 2.9 x 2.0 cm. Vascular flow is present. No adnexal mass There is no free fluid in the pelvis. IMPRESSION: Endometrial cavity is distended by fluid. Possible right paraovarian cyst. No sonographic evidence of ovarian torsion. Reviewed, dictated and finalized at location K. ULE FILLER
[2023-03-31 15:00] VITALS: BP 133/80; PULSE 88; RESP 18; TEMP 36.6; O2SAT 99
[2023-03-31 15:19] LABS: Basophils Percent Auto 0.2 % (0.2-1.2); Eosinophils Absolute Auto 0.1 K/mm3 (0-0.3); Eosinophils Percent Auto 0.6 % (0-4.4); Hematocrit 35.4 % (37.0-47.0); Hemoglobin 12.3 g/dL (12.0-15.0); Immature Granulocyte Absolute 0.03 K/mm3 (0.00-0.031); Immature Granulocyte Percent A 0.3 % (0-0.5); Lymphocytes Absolute Auto 3.89 K/mm3 (0.9-3.2); Lymphocytes Percent Auto 45.3 % (18.3-44.2); Mean Corpuscular HGB Conc 34.7 g/dl (32-36); Mean Corpuscular Hemoglobin 31.1 pg (26-34); Mean Corpuscular Volume 89.4 fl (80-100); Mean Platelet Volume 9.1 fl (7.4-10.4); Monocytes Absolute Auto 0.5 K/mm3 (0.1-0.6); Monocytes Percent Auto 6.2 % (2.6-8.5); Neutrophils Absolute Auto 4.1 K/mm3 (1.3-6.7); Neutrophils Percent Auto 47.4 % (45.5-73.1); Platelet Count Result 250 k/mm3 (150-375); Red Blood Count 3.96 M/mm3 (4.2-5.4); Red Cell Distribution Width 13.1 % (11.5-14.5); White Blood Count 8.6 K/mm3 (4.5-10.0)
[2023-03-31 15:24] LABS: Alanine Aminotransferase 12 U/L (6-35); Albumin Level 4.3 g/dL (3.5-5.1); Alkaline Phosphatase 54 U/L (38-126); Anion Gap 7 mmol/L (8-16); Aspartate Amino Transferase 20 U/L (14-36); Bilirubin,Total 0.7 mg/dL (0.2-1.3); Blood Urea Nitrogen 12 mg/dL (7-17); Carbon Dioxide 25 mmol/L (22-30); Chloride 107 mmol/L (98-107); Estimated CRCL calculation 89 ml/min; Estimated Glomerular Filt Rate > 60; Glucose 109 mg/dL (65-110); Lipase 55 U/L (23-300); Potassium 3.6 mmol/L (3.4-5.0); Sodium 139 mmol/L (137-145)
--- NOTE | 2023-03-31 15:24 | ED.ABDPAIN ---
HPI - Abdominal Pain General Chief Complaint: Abdominal Pain Stated Complaint: abd pain Time Seen by Provider: 03/31/23 15:24 Source: patient Mode of arrival: ambulatory Limitations: no limitations History of Present Illness HPI narrative: 27 YEARS OLD FEMALE DROVE HERSELF TO THE EMERGENCY ROOM COMPLAINING OF INTERMITTENT LOWER ABDOMINAL PAIN FOR WEEKS. WHEN IT COMES IT SOMETIME LAST MORE THAN 2 DAYS IN A ROW. SHE DENIES AGGRAVATING OR RELIEVING FACTORS, SHE DENIES ANY FEVER, CHILLS, NAUSEA, VOMITING, DIARRHEA, CONSTIPATION, VAGINAL BLEEDING OR DISCHARGE. PATIENT USED TO BE ON DEPO SHOT, HAS BEEN OFF IT FOR OVER 6 MONTHS AGO AND HAS BEEN HAVING NO MENSTRUATION SINCE. PATIENT IS SEXUALLY ACTIVE WITHOUT ANY COMPLAINS. HISTORY OF APPENDECTOMY, SHE DRINKS OCCASIONALLY, DOES NOT SMOKE CIGARETTES OR USE MARIJUANA. SHE DENIES ANY STRESS. Related Data Home Medications Medication Instructions Recorded Confirmed medroxyprogesterone 150 mg/mL 150 mg IM [id number] 02/20/22 02/20/22 intramuscular syringe Allergies Allergy/AdvReac Type Severity Reaction Status Date / Time No Known Allergies Allergy Verified 05/14/22 11:20 Review of Systems Review of Systems: All systems reviewed & are unremarkable except as noted in HPI and below PMFSH Past Medical History Medical History No significant medical problems Surgical History Surgical History No pertinent past surgical history Exam Narrative: GENERAL APPEARANCE: WELL-DEVELOPED, WELL-NOURISHED SKIN: NORMAL COLOR HEAD: NORMOCEPHALIC, NONTRAUMATIC EYES: CLEAR CONJUNCTIVA ENT: OROPHARYNX NORMAL, EARS NORMAL, NOSE NORMAL NECK: SUPPLE, NONTENDER CHEST AND RESPIRATORY: AIRWAY PATENT, NO RESPIRATORY DISTRESS, NO ACCESSORY MUSCLE USE HEART: REGULAR RATE/RHYTHM ABDOMEN: SOFT, MILD DIFFUSE TENDERNESS ACROSS LOWER ABDOMEN BILATERALLY, NO GUARDING REBOUND, NO ORGANOMEGALY, QUIET BOWEL SOUNDS VASCULAR: NORMAL PERIPHERAL PULSES, NORMAL CAPILLARY REFILL. MUSCULOSKELETAL: NORMAL RANGE OF MOTION, NONTENDER BACK NEUROLOGIC: ALERT AND ORIENTED ?3, ATLASSIAN ADMINISTRATOR IS NORMAL TESTED, NO GROSS MOTOR DEFICIT Course Vital Signs Vital signs: Vital Signs Temperature 36.6 C 03/31/23 15:00 Pulse Rate 88 03/31/23 15:00 Respiratory Rate 18 03/31/23 15:00 Blood Pressure 133/80 03/31/23 15:00 Pulse Oximetry 99 03/31/23 15:00 Oxygen Delivery Room Air 03/31/23 15:00 Temperature 36.6 C 03/31/23 15:00 Pulse Rate 88 03/31/23 15:00 Respiratory Rate 18 03/31/23 15:00 Blood Pressure 133/80 03/31/23 15:00 Pulse Oximetry 99 03/31/23 15:00 Oxygen Delivery Room Air 03/31/23 15:00 MDM - Abdominal Pain MDM Narrative Medical decision making narrative: PATIENT DROVE HERSELF TO THE EMERGENCY ROOM WITH INTERMITTENT LOWER ABDOMINAL PAIN FOR 2 MONTHS. LAST MENSTRUATION. OVER 6 MONTHS AGO, PATIENT IS NOT ON CONTRACEPTIVE PILLS OR IUD. VITAL SIGNS ARE STABLE PHYSICAL EXAMINATION SHOWED MILD DIFFUSE TENDERNESS ACROSS THE LOWER ABDOMEN WITHOUT DISTENTION DIFFERENTIAL DIAGNOSIS INCLUDE URINARY TRACT INFECTION, CONSTIPATION, PID, RETENTION OF MENSTRUATION. BLOOD WORKUP AND URINALYSIS SHOWED NO ACUTE ABNORMALITIES. CT ABDOMEN AND PELVIS WITH IV CONTRAST AND PELVIC ULTRASOUND SHOWED POSSIBLE ENDOMETRIAL CAVITY FLUID. WHICH HIGH LIKELY SECONDARY TO OBSTRUCTION OF THE OUTFLOW PATH OF THE MENSTRUAL BLOOD. PATIENT DOES NOT LOOK IN PAIN OR DISTRESS AT THIS TIME. DISCHARGE HOME, TYLENOL, IBUPROFEN NEEDED, FOLLOW-UP WITH DR. BERKOWITZ IN A.M. Differential Diagnosis Diffe
[2023-03-31 15:36] LABS: Appearance Urine Clear (Clear); Bilirubin Urine Negative (Negative); Blood Urine Negative (Negative); Color Urine Yellow (Yellow); Glucose Urine UA Negative (Negative); Ketones Urine Trace mg/dL (Negative); Leukocyte Esterase Ur Negative LEU/UL (Negative); Nitrate Urine Negative (Negative); Protein Urine Negative (Negative); Specific Grav Ur 1.032 (1.001-1.035); pH Urine 5.5 (5.0-9.0)
[2023-03-31 16:17] LABS: Add Urine Microscopic? NO
[2023-03-31 18:57] VITALS: BP 125/74; PULSE 80; RESP 16; TEMP 36.6; O2SAT 100
== END 2023-03-31 18:58 | disposition home or self-care (01) ==
PROVIDERS: Emergency Provider Emergency Medicine
DX: N91.1 Secondary amenorrhea (principal); R10.30 Lower abdominal pain, unspecified; R93.89 Abnormal findings on diagnostic imaging of other specified body structures
CPT/HCPCS: 36415; 74177; 76830; 76856; 80053; 81003; 81025; 83690; 85025; 99284; Q9967

== ENCOUNTER 2023-04-25 01:43 | Day surgery (SDC) | payer BC, OTHER, SELFPAY ==
[2023-04-11 09:26] VITALS: BMI 22.1
--- NOTE | 2023-04-11 09:31 | PC.NURSE ---
Report to the Outpatient Waiting Room, entrance under the green pavilion located off [facility], at time _1215 on date _04/25/22_. Planned Procedure Time: _1415__. Time changes happen often and if your time is changed the preop area will call you the afternoon before. - You and your visitor will be asked to self-screen and do not enter if you have any COVID symptoms. - A mask is optional within the hospital at this time. Patients may have clear liquids (water, carbonated beverages, clear teas, apple juice) until 3 hours prior to surgery with a maximum of 20 ounces. - No food from midnight until time of surgery - Infants may have breast milk until 4 hours before surgery, formula 6 hours prior to surgery. - Children will be allowed to drink immediately following surgery. If applicable, please bring a bottle or sippy cup to assist with drinking. Juice, water, soda, and popsicles are readily available. For infants on formula, please bring formula the day of surgery. Pacifiers are allowed. Take the following medications with a SIP of water the morning of surgery: NONE DO NOT STOP ANY OF YOUR OTHER PRESCRIPTION MEDICATIONS PRIOR TO SURGERY ?EXCEPT THE FOLLOWING Medications to discontinue per physician NONE Date to take last dose Please no make-up, nail syrian, hairspray, perfume, deodorant, or body powder the day of surgery. No jewelry (including any body piercings) or valuables the day of surgery, leave them at home. Please take a shower or bath the night before, or the morning of, surgery with an antibacterial soap. Wear comfortable, loose fitting clothing. Children are encouraged to wear pajamas. - Jewelry must be removed prior to entering the operating room. Rings and piercings that are not removed may be cut off. - The hospital will not accept responsibility for valuables. - Please leave all valuables, including medications, at home the day of surgery. If you are going home after surgery, a licensed emt driver must drive you home. - NO public transportation without another adult if you receive anesthesia. - We recommend that an adult stay with you for 24 hours following discharge. - We also recommend that you do not drive, make important decision, drink alcoholic beverages, or take any drugs that were not prescribed by your health care provider for at least 24 hours after your discharge time. For Pediatric surgeries, we recommend two adults accompany the child home. Follow any additional instructions given to you from your surgeon. If you or anyone in your household have experienced Covid symptoms in the past week, please notify your surgeon or the nurse liaison at the phone number below for possible testing. Telephone instructions given to _WOO_and asked if any additional questions and then verbalized understanding. Patient advised to call surgeon office or pre surgery nurse liaison [phone] if any additional questions.
--- NOTE | 2023-04-25 10:11 | PM.IMHP ---
H&P: HPI History of Present Illness Date/Time: 04/25/23 10:11 Chief Complaint: pelvic pain Narrative: pelvic pain 28-year-old female who presents for hysteroscopy D&C for pelvic pain. Patient reports amenorrhea since last May. Patient had pelvic ultrasound which showed fluid-filled endometrial cavity. Attempt was made in office to evacuate the endometrial fluid. Suspect hematometra. Review of Systems Cardiovascular: Cardiovascular: Denies chest pain, Denies leg edema, Denies palpitations, Denies dyspnea and Denies dyspnea on exertion Respiratory: Respiratory: Denies cough, Denies dyspnea and Denies dyspnea on exertion Gastrointestinal: Gastrointestinal: Denies abdominal pain, Denies constipation, Denies diarrhea, Denies nausea and Denies vomiting Genitourinary: Genitourinary: Denies hematuria, Denies urinary frequency, Denies dysuria, Denies pelvic pain, Denies urinary incontinence and Denies vaginal discharge Neurologic: Reports system reviewed and no additional complaints, except as documented Psychiatric: Psychiatric: Reports no additional psychiatric complaints Endocrine: Endocrine: Denies palpitations PMFSH Past Medical History Medical History (Updated 04/01/23 @ 09:12 by Adrián Mcneal MD) No significant medical problems Surgical History Surgical History (Updated 04/01/23 @ 08:50 by Jennifer An CMA) Hx of appendectomy Social History Social History (Updated 04/01/23 @ 08:51 by Jennifer An CMA) Smoking status: Never smoker Alcohol intake: current Alcohol use details: 1 PER MONTH Substance use: never Living arrangements: with family Occupation/Education: occupation Gender identity (if verbalized by the patient): Female Meds Home Medications and Allergies Home Medications Medication Instructions Recorded Confirmed Type metronidazole 500 mg tablet 500 mg PO Q12H #14 tabs 04/03/23 04/11/23 Rx Allergies Allergy/AdvReac Type Severity Reaction Status Date / Time No Known Allergies Allergy Verified 04/11/23 09:25 Exam Const: General: no acute distress Eyes: EOM: EOMs intact bilaterally Neck: Neck: supple Thyroid: thyroid normal Chest: Breast/axilla inspection: normal inspection of the breasts Breast/axilla palpation: normal palpation of the breasts, normal palpation of the axillae and no axillary lymphadenopathy Resp: Effort & Inspection: normal respiratory effort Auscultation: clear to auscultation bilaterally Cardio: Rate: regular rate Rhythm: regular rhythm GI: Inspection: non-distended GI Palp: Yes Soft to palpation, No Tenderness to palpation present (GI) and No Guarding due to palpation present (GI) Auscultation: normal bowel sounds : General: No bladder normal to palpation External Female Exam: normal external appearance Speculum Exam - Vagina: normal vaginal discharge and No vaginal bleeding Speculum Exam - Cervix: nontender Bimanual exam- vagina & uterus: No bladder normal to palpation and No Cervical tenderness present OB/external & speculum: No vaginal bleeding Skin: General skin exam: normal color and no rashes or lesions noted Neuro: Cognition (Neuro): normal cognition Speech: normal speech Extrem: General: normal to inspection and no edema Psych: Mental Status: mental status grossly normal Affect: normal affect Assessment and Plan Assessment and plan (1) Pelvic pain: Code(s): R10.2 - Pelvic and perineal pain Status: Acute Assessment and Plan: ?27-year-old female who presents for follow-up after ER visit for abdominal / pelvic pain Patient has had intermittent pain for the past month Patient states pain will last for 2-3 days resolved and then returned The patient reports the pain is a 6/10 at rest but is exacerbated by ambulating and lifting Patient had CT scan and pelvic ultrasound in the emergency room.? Documentation and imaging reviewed Imaging showed fluid-filled endometrial cavity Pa
[2023-04-25 12:22] VITALS: BP 103/68; PULSE 79; RESP 16; TEMP 36.7; O2SAT 100
--- NOTE | 2023-04-25 12:45 | WPDHPUPDATE1 ---
History and Physical Update Update Date/Time: 04/25/23 12:45 History and Physical has been reviewed, including an updated exam of the patient. There are NO changes in the patient's condition. Risks, benefits, and alternatives have been discussed and questions answered. Patient agrees to proceed with procedure.
[2023-04-25] MEDS: ACETAMINOPHEN 500 MG TABLET 1000 MG PO (13:06)
[2023-04-25] MEDS: LACTATED RINGERS 1,000 ML 30 ML IV CONT (13:20)
--- NOTE | 2023-04-25 13:48 | WPDANESEPPF ---
Anes - Initial Pre Proc Eval Procedure: Operation Date: 04/25/23 14:15 Proposed Procedures p Hysteroscopy, Dilation and Curettage - Adrián Mcneal MD Date/Time: 04/25/23 13:48 Surgeon: Adrián Mcneal MD Pre Op Diagnosis: amenorrhea Patient Data Age: 28 Gender: F Height: 1.7 m Weight: 63.2 kg Last Vital Signs Temp 36.7 C 04/25/23 12:22 Pulse 79 04/25/23 12:22 Resp 16 04/25/23 12:22 BP 103/68 04/25/23 12:22 Pulse Ox 100 04/25/23 12:22 O2 Del Method Room Air 04/25/23 12:22 Allergies Allergy/AdvReac Type Severity Reaction Status Date / Time No Known Allergies Allergy Verified 04/25/23 12:52 Home Medications Medication Instructions Recorded Confirmed Type No Home Medications 04/25/23 04/25/23 History Patient hx anesthesia problems: none Family hx anesthesia problems: none Results Review: All pre-operative results and documents have been reviewed as part of the pre-operative evaluation. [facility] Past Medical History Medical History No significant medical problems Surgical History Surgical History Hx of appendectomy Social History Social History Smoking status: Never smoker Alcohol intake: current Alcohol use details: 1 PER MONTH Substance use: never Living arrangements: with family Occupation/Education: occupation Gender identity (if verbalized by the patient): Female Anes - Eval Final PreProcedure Day of Procedure 04/25/23 13:48 Patient weight: normal Heart: regular rate and rhythm Lungs: clear to auscultation Airway: Mallampati scale class II Neurological: alert and oriented Last oral intake: >/= 8 hours ASA classification: I Emergent: no Anesthetic plan: proceed Anesthesia type and monitoring: general GIVS and standard monitoring Results Review: All pre-operative results and documents have been reviewed as part of the pre-operative evaluation. Informed Consent: The patient's anesthetic plan and its attendant risks and benefits were discussed with the patient/family/POA. Questions were solicited and answers provided to the satisfaction of the patient/family/POA.
[2023-04-25 14:34] VITALS: BP 107/65; PULSE 72; RESP 16; O2SAT 100
--- NOTE | 2023-04-25 14:34 | W.PM.PROC2 ---
Procedure Note - Detailed Date of Procedure 04/25/23 Pre-op Diagnosis amenorrhea intrauterine fluid on US Post-op Diagnosis Same Procedure Performed hysteroscopy dilation & curettage Surgeon Adrián Mcneal MD Anesthesia General Indications amenorrhea fluid in the uterine cavity of US Findings normal appearing intrauterine cavity. Normal tubal ostia bilaterally Description of Procedure Marycarmen Patton presents for the above procedure. She was counseled as to the indications, risks, benefits, and alternatives to surgery, with the risks including bleeding, infection, damage to surrounding organs, VTE, and complications of anesthesia. Her verbal and written consent was obtained. PROCEDURE: The patient was taken to the OR and general anesthesia induced. She was prepped and draped in Carlos stirrups with support of the back and bilateral lower extremities. I/O catheterization performed of the bladder. A single tooth tenaculum was placed on the anterior lip of the cervix. The cervix was dilated with sequential Lydia dilators. Some cervical stenosis was noted. After passage of the dilators, a moderate amount of dark brown blood was evacuated from the uterus. Hysteroscopy, using a normal saline medium, was performed and showed the above findings. Sharp uterine curettage was then performed and tissue placed on Telfa. The tenaculum was removed and hemostasis was observed. The patient tolerated the procedure well. Sponge, lap, and needle counts were correct. The patient had SCD's on throughout the case for VTE prophylaxis. The patient was taken to the recovery room in stable condition. Drains No Packing No Pathology Yes (endometrial curettings ) Complications No immediate complications Condition Stable Disposition PACU [facility] Billing Surgery - Charge Forward: Surgery Billing
[2023-04-25 14:45] VITALS: BP 105/67; PULSE 69; RESP 18; O2SAT 100
[2023-04-25 15:15] VITALS: BP 98/57; PULSE 68; RESP 18; O2SAT 100
[2023-04-25] MEDS: oxyCODONE HCL (*CRX) 5 MG TAB IR PO (15:36)
[2023-04-25 15:45] VITALS: BP 104/66; PULSE 75; RESP 17
[2023-04-25 16:06] VITALS: BP 109/72; RESP 16
== END 2023-04-25 16:08 | disposition home or self-care (01) ==
PROVIDERS: Visit Provider Student in an Organized Health Care Education/Training Program
PROC: 0U5B8ZZ Destruction of Endometrium, Via Natural or Artificial Opening Endoscopic (ICD-10-PCS; CPT 58563; principal; 2023-04-25 14:15)
DX: N91.2 Amenorrhea, unspecified (principal); Z98.890 Other specified postprocedural states
CPT/HCPCS: 58558; 88305; A9270; J2250; J3010; J7120

== ENCOUNTER 2023-08-06 09:06 | Emergency (ER) | payer BC, OTHER, SELFPAY ==
[2023-08-06 09:09] VITALS: BP 138/91; PULSE 80; RESP 18; TEMP 36.7; O2SAT 100
--- NOTE | 2023-08-06 09:14 | ED.LOWEXIN ---
HPI - Extremity Injury (Lower) General Chief Complaint: Extremity Injury, Lower Stated Complaint: left foot pain Time Seen by Provider: 08/06/23 09:10 History of Present Illness HPI Narrative: 28-year-old with no medical problems presents to the emergency room with acute onset of left foot pain. Patient denies any injury or trauma. Patient states the pain is relieved with rest, and experiences a sharp stabbing pain to the arch of her foot for 1st few steps following rest. Patient states that she applied ice to the foot once with no improvement of her symptoms. Patient has denied taking any ibuprofen or acetaminophen for pain relief. 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 Related Data Allergies Allergy/AdvReac Type Severity Reaction Status Date / Time No Known Allergies Allergy Verified 05/16/23 10:04 Review of Systems Review of Systems: CONSTITUTIONAL: Denies fever, chills, or sweats. EYES: Denies visual changes, redness, or discharge. ENT: Denies rhinorrhea, congestion, sore throat, or otalgia. CARDIOVASCULAR: Denies chest pain, palpitations, or edema. RESPIRATORY: Denies cough or dyspnea. GASTROINTESTINAL: Denies abdominal pain, nausea, vomiting, or diarrhea. GENITOURINARY: Denies dysuria or hematuria. SKIN: Denies rash or itching. MUSCULOSKELETAL: Denies back pain, joint pain, or myalgia. NEUROLOGIC: Denies headache, numbness, dizziness, or weakness. PSYCHIATRIC: Denies anxiety or depression. PMFSH Past Medical History Medical History No significant medical problems Surgical History Surgical History History of hysteroscopy D & C Hx of appendectomy Social History Social History Smoking status: Never smoker Alcohol intake: current Alcohol use details: 1 PER MONTH Substance use: never Living arrangements: with family Occupation/Education: occupation Gender identity (if verbalized by the patient): Female Exam Narrative: GENERAL: Well-appearing, well-nourished, no physical limitations, and in no acute distress. HEAD: Normocephalic, atraumatic. EYES: Conjunctivae normal, PERRLA and EOMI. CHEST: Clear to auscultation. No respiratory distress. No wheezes rales or rhonchi. HEART: Regular rate and rhythm. No murmur heard. Normal peripheral pulses. EXTREMITIES: Left foot: +TTP over dorsal surface of midfoot, pain with dorsiflexion of toes SKIN: Warm, dry, no rash. No noted wounds NEURO: No focal deficits. Alert and oriented x3. MAEW. CN's II-XI intact bilaterally, normal gait PSYCH: Cooperative. Normal mood and affect. Course Vital Signs Vital signs: Vital Signs Temperature 36.7 C 08/06/23 09:09 Pulse Rate 80 08/06/23 09:09 Respiratory Rate 18 08/06/23 09:09 Blood Pressure 138/91 H 08/06/23 09:09 Pulse Oximetry 100 08/06/23 09:09 Oxygen Delivery Room Air 08/06/23 09:09 Temperature 36.7 C 08/06/23 09:09 Pulse Rate 80 08/06/23 09:09 Respiratory Rate 18 08/06/23 09:09 Blood Pressure 138/91 H 08/06/23 09:09 Pulse Oximetry 100 08/06/23 09:09 Oxygen Delivery Room Air 08/06/23 09:09 MDM - Extremity Injury (Lower) MDM Narrative Medical decision making narrative: 28-year-old female presents to the emergency room with acute onset of atraumatic left foot pain over the past couple of weeks. Patient stated the pain was worse 1st thing in the morning and after activity. Imaging shows no acute abnormalities. Patient likely experiencing plantar fasciitis. Discussed the normal course of symptoms. Will refer patient to podiatry and encouraged her to wear shoe inserts Discharge Plan Discharge Clinical Impression: Acute pain of left foot Patient Disposition: Home, Self-Care Condition: Stable Instructions: Antibiotic Form, Plantar Fasciitis (ED), Plantar Fasciitis
== END 2023-08-06 09:54 | disposition home or self-care (01) ==
PROVIDERS: Emergency Provider Nurse Practitioner Family; Referring Provider Emergency Medicine
DX: M79.672 Pain in left foot (principal)
CPT/HCPCS: 73630; 99283

== ENCOUNTER 2024-02-13 17:31 | Emergency (ER) | payer OTHER, SELFPAY ==
--- NOTE | ~2024-02-13 | CT_ITS ---
EXAMINATION: CT abdomen pelvis w con DATE: 02/13/2024 20:03 INDICATION: Left lower quadrant abdominal pain TECHNIQUE: Computed tomography (CT) of the abdomen and pelvis was performed with 100 mL Omnipaque-350 intravenous contrast. Automated exposure control and iterative reconstruction technique were employe d. The dose-length product was 257.17 mGy-cm. COMPARISON: None FINDINGS: Lung bases are clear. Heart size normal. No pericardial or pleural effusion. For millimeter cyst at t he dome of the liver. Gallbladder, spleen, pancreas, bilateral adrenal glands and right kidney are no rmal. 9 mm left renal cyst. There are small peripherally enhancing likely corpus luteum cyst at the b ilateral ovaries the largest on the left measuring 1.3 cm. Minimal amount of fluid in the pelvis ari g the decompressed bladder which could be physiologic or reactive. Anteverted uterus is unremarkable. There is suggestion mild rectal wall thickening and stranding in the perirectal fat suspicious for p roctitis/distal colitis. No abscess or free intraperitoneal gas. No pathologically enlarged abdominal or pelvic lymphadenopathy. Slight thoracolumbar levocurvature. Bones are otherwise unremarkable. IMPRESSION: 1. Suspicion for possible mild proctitis/distal colitis. Reviewed, dictated and finalized at location A.
--- NOTE | ~2024-02-13 | US_ITS ---
EXAMINATION: US transvaginal DATE: 02/13/2024 20:50 INDICATION: Left lower quadrant abdominal pain TECHNIQUE: Multiple transabdominal and endovaginal sonographic images of the pelvis were obtained. COMPARISON: None. FINDINGS: The uterus measures 8.5 x 4.0 x 5.8 cm. The endometrial complex measures 4 mm in thickness. A couple nabothian cysts at the cervix the larger measuring 5 mm. The right ovary measures 3.7 x 2.3 x 2.8 cm . The left ovary measures 3.3 x 1.9 x 2.2 cm. Vascular flow is present in both ovaries on color Doppl er. Multiple small anechoic follicles at both ovaries. Within both ovaries are also couple centrally anechoic thick-walled likely corpus luteum cyst with peripheral vascular flow on color Doppler. There is no free fluid in the pelvis. IMPRESSION: 1. Unremarkable pelvic ultrasound. Reviewed, dictated and finalized at location A.
[2024-02-13 17:36] VITALS: BP 136/75; PULSE 117; RESP 16; TEMP 36.8; O2SAT 100
--- NOTE | 2024-02-13 19:02 | ECG_ITS ---
Test Date: 2024-02-13 19:14:26 Measurements Intervals [place] Rate: 94 P: 72 ND: 144 QRS: 40 QRSD: 96 T: 42 QT: 337 QTc: 422 Interpretive Statements SINUS RHYTHM POSSIBLE LEFT ATRIAL ENLARGEMENT [-0.1mV P WAVE IN V1/V2] POSSIBLE RIGHT VENTRICULAR CONDUCTION DELAY [RSR (QR) IN V1/V2] No previous ECG available for comparison Electronically Signed On 02-14-2024 15:28:35 CDT by Abdullahi White M.D.
[2024-02-13 19:22] LABS: BEDSIDEPREGUCG Negative (Negative)
[2024-02-13] MEDS: SODIUM CHLORIDE 0.9% IV 1,000 ML 999 ML IV CONT (19:23)
[2024-02-13 19:24] LABS: Basophils Percent Auto 0.1 % (0.2-1.2); Eosinophils Percent Auto 0.2 % (0-4.4); Hematocrit 31.9 % (37.0-47.0); Hemoglobin 11.4 g/dL (12.0-15.0); Immature Granulocyte Absolute 0.01 K/mm3 (0.00-0.031); Immature Granulocyte Percent A 0.1 % (0-0.5); Lymphocytes Absolute Auto 2.82 K/mm3 (0.9-3.2); Lymphocytes Percent Auto 29.7 % (18.3-44.2); Mean Corpuscular HGB Conc 35.7 g/dl (32-36); Mean Corpuscular Hemoglobin 31.5 pg (26-34); Mean Corpuscular Volume 88.1 fl (80-100); Mean Platelet Volume 9.2 fl (7.4-10.4); Monocytes Absolute Auto 0.9 K/mm3 (0.1-0.6); Monocytes Percent Auto 9.6 % (2.6-8.5); Neutrophils Absolute Auto 5.7 K/mm3 (1.3-6.7); Neutrophils Percent Auto 60.3 % (45.5-73.1); Platelet Count Result 217 k/mm3 (150-375); Red Blood Count 3.62 M/mm3 (4.2-5.4); Red Cell Distribution Width 13.3 % (11.5-14.5); White Blood Count 9.5 K/mm3 (4.5-10.0)
[2024-02-13] MEDS: KETOROLAC 30 MG/ML VIAL (*BKC) 15 MG IV PUSH (19:24)
[2024-02-13 19:25] VITALS: PULSE 94
[2024-02-13 19:28] LABS: Add Urine Microscopic? YES; Appearance Urine Clear (Clear); Bacteria Urine None Seen /hpf; Bilirubin Urine Negative (Negative); Blood Urine Non-Hemolyzed Trace (Negative); Color Urine Yellow (Yellow); Glucose Urine UA Negative (Negative); Ketones Urine Negative (Negative); Leukocyte Esterase Ur Trace LEU/UL (Negative); Nitrate Urine Negative (Negative); Non Pathogenic Casts 0-2; Protein Urine Negative (Negative); Specific Grav Ur 1.023 (1.001-1.035); Squamous Epithelial Cell Urine None Seen /hpf (Few); WBC Urine 0-5 /hpf (0-3)
[2024-02-13 19:35] LABS: Alanine Aminotransferase 10 U/L (6-35); Albumin Level 4.1 g/dL (3.5-5.1); Alkaline Phosphatase 50 U/L (38-126); Anion Gap 6 mmol/L (4-12); Aspartate Amino Transferase 20 U/L (14-36); Bilirubin,Total 0.4 mg/dL (0.2-1.3); Blood Urea Nitrogen 13 mg/dL (7-17); Calcium 8.8 mg/dL (8.4-10.2); Carbon Dioxide 28 mmol/L (22-30); Chloride 103 mmol/L (98-107); Estimated CRCL calculation 88 ml/min; Estimated Glomerular Filt Rate > 60; Glucose 94 mg/dL (65-110); Lipase 56 U/L (23-300); Potassium 3.3 mmol/L (3.4-5.0); Sodium 137 mmol/L (137-145)
[2024-02-13 19:43] LABS: Negative Monotest Control Negative (Negative); Positive Monotest Control Positive (Positive)
[2024-02-13 19:50] LABS: Monoscreen Negative (Negative)
[2024-02-13 19:53] LABS: Strep Group A RT-PCR NOT DETECTED (Negative)
--- NOTE | 2024-02-13 20:02 | ED_ITS ---
HPI - General Adult General Chief complaint: Unspecified Stated complaint: multiple complaints Time Seen by Provider: 02/13/24 18:54 History of Present Illness HPI narrative: 28-year-old female presents emergency department for several medical complaints. Patient states she woke up this morning with a sore throat, lightheadedness and dizziness that was worse when she would stand up. She states later throughout the day she began developing pain in her left lower quadrant and suprapubic region. She denies fever, cough or congestion, chest pain or shortness of breath, N/ V/D , dysuria or hematuria. Reports history of appendectomy. LMP 1 week ago. Related Data Allergies Allergy/AdvReac Type Severity Reaction Status Date / Time No Known Allergies Allergy Verified 05/16/23 10:04 Review of Systems Review of Systems: All systems reviewed & are unremarkable except as noted in HPI and below PMFSH Past Medical History Medical History No significant medical problems Surgical History Surgical History History of hysteroscopy D & C Hx of appendectomy Social History Social History Smoking status: Never smoker Alcohol intake: current Alcohol use details: 1 PER MONTH Substance use: never Living arrangements: with family Occupation/Education: occupation Gender identity (if verbalized by the patient): Female Exam Narrative: GENERAL: Well-appearing, well-nourished, and in no acute distress. HEAD: Normocephalic, atraumatic. EYES: PERRLA and EOMI. ENT: Nares clear, no rhinorrhea or epistaxis. Mucous membranes moist. Bilateral TMs are hayden nonbulging with normal canals. Posterior pharynx with erythema, no tonsillar hypertrophy or uvular hydrops, no uvular deviation or exudates. Airway intact. Patient tolerating secretions and speaking in full sentences. NECK: Supple. CHEST: Clear to auscultation. No respiratory distress. HEART: Regular rate and rhythm. No murmur heard. Normal peripheral pulses. ABDOMEN: normoactive bowel sounds. Abdomen soft with mild tenderness in the left lower quadrant and suprapubic region. No rebound, guarding or rigidity. No CVA tenderness. EXTREMITIES: Normal range of motion. No edema. SKIN: Warm, dry, no rash. NEURO: No focal deficits. Alert and oriented x3 Course Vital Signs Vital signs: Vital Signs Temperature 98.2 F 02/13/24 17:36 Pulse Rate 117 H 02/13/24 17:36 Respiratory Rate 16 02/13/24 17:36 Blood Pressure 136/75 02/13/24 17:36 Pulse Oximetry 100 02/13/24 17:36 Temperature 98.0 F 02/13/24 20:04 Pulse Rate 68 02/13/24 21:06 Respiratory Rate 15 02/13/24 21:06 Blood Pressure 110/68 02/13/24 21:06 Pulse Oximetry 99 02/13/24 21:06 Medical Decision Making MDM Narrative Medical decision making narrative: 28-year-old female presents to the emergency department for some multiple medical complaints including sore throat, lightheadedness and dizziness, left lower quadrant abdominal pain. Triage vitals with tachycardia 117 which has since resolved. She is afebrile nontoxic appearing. Exam is significant for the above. CBC without leukocytosis. Hemoglobin is mildly low at 11.4 with a normal MCV. Patient is a history of hemoglobins ranging from 10-12. Chemistries remarkable for mild hypokalemia of 3.3, Mag is normal. No other electrolyte derangements. Lipase normal at 56. UA with 6-10 rbc's, no wbc's or findings consistent with UTI. is negative. Lipase normal. EKG reveals sinus rhythm, normal MI interval, normal QRS duration, normal QTC, ischemic changes. [place], flu, RSV, COVID and strep were negative. Pelvic ultrasound reveals no acute findings with normal vascular flow to both ovaries. CT abdomen pelvis is suspicious for possible mild proctitis/distal colitis. Workup discussed with the patient. Potassium repleted orally. She was given IV fluids and Toradol with improvement. Plan to treat colitis with Cipro and Flagyl and have her follow-up closely with her PCP. Encouraged [id number] ibuprofen and Tylenol for pain control. Vitals remained stable. Strict ED return precautions discussed. She is agreeable with the plan verbalized understanding. Discharged in stable condition. Vital Signs Vital Signs: Vital Signs Temperature 98.2 F 02/13/24 17:36 Pulse Rate 117 H 02/13/24 17:36 Respiratory Rate 16 02/13/24 17:36 Blood Pressure 136/75 02/13/24 17:36 Pulse Oximetry 100 02/13/24 17:36 Temperature 98.0 F 02/13/24 20:04 Pulse Rate 68 02/13/24 21:06 Respiratory Rate 15 02/13/24 21:06 Blood Pressure 110/68 02/13/24 21:06 Pulse Oximetry 99 02/13/24 21:06 Lab Data 02/13/24 19:16 02/13/24 19:16 Labs: Lab Results 02/13/24 02/13/24 02/13/24 Range/Units 19:15 19:16 19:20 WBC 9.5 (4.5-10.0) K/mm3 RBC 3.62 L (4.2-5.4) M/mm3 Hgb 11.4 L (12.0-15.0) g/dL Hct 31.9 L (37.0-47.0) % MCV 88.1 (80-100) fl MCH 31.5 (26-34) pg MCHC 35.7 (32-36) g/dl RDW 13.3 (11.5-14.5) % Plt Count 217 (150-375) k/mm3 MPV 9.2 (7.4-10.4) fl Immature Gran % (Auto) 0.1 (0-0.5) % Neut % (Auto) 60.3 (45.5-73.1) % Lymph % (Auto) 29.7 (18.3-44.2) % [place] % (Auto) 9.6 H (2.6-8.5) % Eos % (Auto) 0.2 (0-4.4) % Baso % (Auto) 0.1 L (0.2-1.2) % Lymph # (Auto) 2.82 (0.9-3.2) K/mm3 [place] # (Auto) 0.9 H (0.1-0.6) K/mm3 Eos # (Auto) 0.0 (0-0.3) K/mm3 Baso # (Auto) 0.0 (0.0-0.1) K/mm3 Abs Immat Gran (auto) 0.01 (0.00-0.031) K/mm3 Absolute Neuts (auto) 5.7 (1.3-6.7) K/mm3 Absolute Nucleated RBC 0.000 (0.0-0.012) K/mm3 Nucleated RBC % 0.0 (0.0-0.2) % Sodium 137 (137-145) mmol/L Potassium 3.3 L (3.4-5.0) mmol/L Chloride 103 (98-107) mmol/L Carbon Dioxide 28 (22-30) mmol/L Anion Gap 6 (4-12) mmol/L BUN 13 (7-17) mg/dL Creatinine 0.80 (0.7-1.0) mg/dL Estim Creat Clear Calc 88 ml/min Estimated GFR > 60 (59 - ) Glucose 94 (65-110) mg/dL Calcium 8.8 (8.4-10.2) mg/dL Magnesium 1.7 (1.6-2.3) mg/dL Total Bilirubin 0.4 (0.2-1.3) mg/dL AST 20 (14-36) U/L ALT 10 (6-35) U/L Alkaline Phosphatase 50 (38-126) U/L Total Protein 7.0 (6.3-8.2) g/dL Albumin 4.1 (3.5-5.1) g/dL Lipase 56 (23-300) U/L Urine Color Yellow (Yellow) Urine Appearance Clear (Clear) Urine pH 7.0 (5.0-9.0) Ur Specific [place] 1.023 (1.001-1.035) Urine Protein Negative (Negative) mg/dL Urine Glucose (UA) Negative (Negative) mg/dL Urine Ketones Negative (Negative) mg/dL Ur Blood (Man) Non-hemolyzed trace H (Negative) Urine Nitrate Negative (Negative) Urine Bilirubin Negative (Negative) Urine Urobilinogen 1.0 (<2.0) mg/dL Leukocyte Esterase Rfl Trace H (Negative) DEANNA/UL Urine RBC 6-10 H (0-2) /hpf Urine WBC 0-5 (0-3) /hpf Ur Squamous Epith Cells None seen (Few) /hpf Urine Bacteria None seen /hpf Urine Casts 0-2 POC Urine HCG, Qual Negative (Negative) Monoscreen Negative (Negative) Influenza A (RT-PCR) Negative (Negative) Influenza B (RT-PCR) Negative (Negative) RSV (RT-PCR) Negative (Negative) SARS-CoV-2 RNA (RT-PCR) Negative (Negative) Group A Strep (PCR) Not detected (Negative) Discharge Plan Discharge Clinical Impression: Viral pharyngitis, Colitis, Hypokalemia Patient Disposition: Home, Self-Care Condition: Stable Instructions: Antibiotic Form, Pharyngitis (ED), Colitis (ED) Additional Instructions: Your evaluated in the emergency department for sore throat, lightheadedness and abdominal pain. Your COVID, flu, RSV, strep and mono test were negative. Ultrasound of your ovaries uterus are unremarkable. The CT scan shows inflammation of her colon called colitis which is likely causing her abdominal pain. Please take the antibiotics as directed and drink plenty of fluids. Take Tylenol ibuprofen [id number] as directed the bottle as needed for pain. Follow-up closely with her primary care provider. Return to the emergency department if you develop worsening or changing pain, fever, you are unable to tolerate food or fluids, or other concerning symptoms. Prescriptions: New ciprofloxacin HCl 500 mg tablet 500 mg PO Q12H Qty: 10 0RF metronidazole 500 mg tablet 500 mg PO Q12H Qty: 10 0RF No Action naproxen 500 mg tablet 500 mg PO BID Qty: 20 0RF Follow-up/Referrals: Amador Betancur MD [Primary Care Provider] -
[2024-02-13 20:04] VITALS: BP 108/54; PULSE 89; RESP 14; TEMP 36.7; O2SAT 100
[2024-02-13 20:05] LABS: Influenza A QL RT-PCR Negative (Negative); Influenza B QL RT-PCR Negative (Negative); RSV RNA, RT-PCR Negative (Negative); SARS-CoV-2 RNA PCR Negative (Negative)
[2024-02-13 20:08] LABS: Magnesium 1.7 mg/dL (1.6-2.3)
[2024-02-13 21:06] VITALS: BP 110/68; PULSE 68; RESP 15; O2SAT 99
[2024-02-13] MEDS: POTASSIUM CHLORIDE 20 MEQ PACKET (FOR LIQUID) PO (21:32)
== END 2024-02-13 21:43 | disposition home or self-care (01) ==
PROVIDERS: Emergency Provider Physician Assistant; PCP Emergency Medicine
DX: J02.9 Acute pharyngitis, unspecified (principal); K52.9 Noninfective gastroenteritis and colitis, unspecified; E87.6 Hypokalemia; Z20.822 Contact with and (suspected) exposure to COVID-19
CPT/HCPCS: 36415; 74177; 76830; 80053; 81001; 81025; 83690; 83735; 85025; 86308; 87637; 87651; 93005; 96361; 96374; 99284; A9270; J1885; J7030; Q9967

== ENCOUNTER 2024-09-02 14:58 | Emergency (ER) | payer BC, SELFPAY ==
--- NOTE | ~2024-09-02 | XR_ITS ---
XR hip RT 2V w AP pelvis Ordering provider: Veronica Ross PA-C History: . posterior lateral hip pain . Comparison: None. FINDINGS: BONES: No acute fracture or dislocation. HIP JOINT SPACES: Normal. SACROILIAC JOINT SPACES/LUMBAR SPINE: The sacroiliac joint spaces are normal. Normal visualized lower lumbar spine. Transitional vertebra is seen in the first sacral segment. PUBIC SYMPHYSIS: Normal. SOFT TISSUES: Normal. IMPRESSION: No acute osseous abnormality pelvis and right hip. Reviewed, dictated and finalized at location A.
--- NOTE | ~2024-09-02 | XR_ITS ---
EXAMINATION: XR wrist RT min 3V DATE: 09/02/2024 16:16 INDICATION: Distal right radial pain post fall TECHNIQUE: Posteroanterior, ulnar deviation, oblique, and lateral views of the right wrist were obtai dolores. COMPARISON: none FINDINGS: Alignment is normal. No fracture. Joint spaces are normal. Soft tissues are unremarkable. IMPRESSION: 1. Negative right wrist radiographs. Reviewed, dictated and finalized at location A.
--- OUTSIDE RECORDS SUMMARY | 2024-09-02 15:02 | XMS_ITS | Clinical Summary ---
Author Organization [facility] [place] [address] [place] [address] Care Team Providers Care Loan Collector Name Role Phone Unavailable Primary Care Provider Unavailabl e Social History Tobacco Use Types Packs/Day Years Used Date Smoking Tobacco: Never Assessed Comments Unknown Sex and Gender Information Value Date Recorded Sex Assigned at Not on file Legal Sex Female 9:14 AM PDT Gender Identity Not on file Sexual Orientation Not on file Plan of Treatment Health Maintenance Due Date Last Done Comments Dental Prophylaxis 1994 Meningococcal B Vaccine Aged Out No l onger eligible based on patient's age to complete this topic Insurance [facility] [place] PPO
--- OUTSIDE RECORDS SUMMARY | 2024-09-02 15:02 | XMS_ITS | Clinical Summary ---
Author Organization [facility] Address [address] [place] [address] Care Team Providers Care Gin Feeder Name Role Phone Unavailable Primary Care Provider Unavailabl e Source Comments [facility],non-owned Affiliates and Associated Physician Practices is amultiple site organization consisting of ambulatory clinics and hospital sitesin [place], [place], [place] and [place]. This disclosure is being madepursuant to the Care Everywhere program and may not contain all information available regarding this patient. Last updated 18.[facility] Allergies No known active allergies Medications * Be aware that medications may not be up to date on this document. Alwaysverify current medications with the patient. Kdjcmqhq-Yif-Oa- FA ( VITAMIN WITH IRON) tablet Take 1 Tab by mouth once daily Active ferrous sulfate 325 (65 FE) MG tablet Take 325 mg by mouth once daily Active Active Problems Patient Care Coordination No te Formatting of this note migh t be different from the original. 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 Gender Identity Not on file Sexual Orientation Not on file Last Filed Vital Signs Vital Sign Reading Time Taken Comments Blood Pressure 103/59 09/24/2016 11:30 AM CDT Pulse 72 09/24/2016 11:30 AM CDT Temperature 36.8 C (98.3 F) 08/07/2016 11:30 AM CDT Respiratory Rate 20 08/15/2016 1:45 PM CDT Oxygen Saturation 100% 08/07/2016 7:45 AM CDT Inhaled Oxygen Concentration - - Weight 64 kg (141 lb) 09/24/2016 11:30 AM CDT Height 170.2 cm (5' 7 ) 09/06/2016 1:30 PM CDT Body Mass Index 22.08 09/06/2016 1:30 PM CDT Plan of Treatment Health Maintenance Due Date Last Done Comments PAP SMEAR 1994 HIV SCREENING 2009 HEPATITIS C SCREENING 04/12/2012 DTAP/TDAP/TD VACCINES (1 - Tdap) 2013 HEPATITIS B VACCINE (1 of 3 - 19+ 3-dose series) 2013 COVID-19 VACCINE (1 - 2023-2 5 season) 2023 DEPRESSION SCREENING 04/22/2024 INFLUENZA VACCINE (Season Ended) 2024 ZOSTER VACCINE (1 of 2) 2044 HIB VACCINE Aged Out No longer eligi ble based on patient's age to complete this topic HPV VACCINE Aged Out No longer eligi ble based on patient's age to complete this topic MENINGOCOCCAL (Group B) VACC INE SHARED DECISION-MAKING Aged Out No longer eligibl e based on patient's age to complete this topic MENINGOCOCCAL GROUPS A/C/Y/W VACCINE Aged Out No longer eligible b ased on patient's age to complete this topic PNEUMOCOCCAL VACCINE Aged Out No long er eligible based on patient's age to complete this topic Insurance [facility] NO INSURANCE Member Subscriber Plan / Payer (Ef fective for All Dates) Name:Atiya Dyer Member ID:Not on file Relation to Subscriber:Not on file Name:ATIYA DYER Subscriber ID:Not on file Address: [address] [place] [address] Payer ID:Not on file Group ID:Not on file Type:Self Pay Address: [place], [place] [facility] SELF PAY NO INSURANCE Member Subscriber Plan / Payer (Ef fective for All Dates) Name:Atiya Dyer R Member ID:Not on file Relation to Subscriber:Not on file Name:ATIYA DYER Subscriber ID:Not on file Address: [address] [place] [address] Payer ID:Not on file Group ID:Not on file Type:Self Pay Address: [place], [place] Advance Directives Documents on File Type Date Recorded 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
--- OUTSIDE RECORDS SUMMARY | 2024-09-02 15:02 | XMS_ITS | Clinical Summary ---
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 Gender Identity Not on file Sexual Orientation Not on file Plan of Treatment Health Maintenance Due Date Last Done Comments Hepatitis C Virus (HCV) Screening 1994 Pap Smear 2015 Influenza Immunization (#1) 2023 02/23/2005 SARS-COV-2 Immunization ( season) 2023 Cervical Cancer Screening (CCS) 2024 HPV/Cotest 2024 Respiratory Syncytial Virus (RSV) Immunization (Adult) (1 - 1-dose 75+ series) 2069 Hepatitis B Immunization Completed 995, 1994, 1994 Meningococcal Immunization (ACWY) Aged Out 01/05/2009 No longer eligible based on patient's age to complete this topic DTaP/Tdap/Td Immunization Discontinued 2016, 01/05/2009, 11/01/1999, Additional history exists TdaP Immunization Completed 09/20/2016, 01/05/2009 Pneumococcal Immunization Combined Aged Out No longer eligible based on patient's age to complete this topic Rotavirus Immunization Aged Out No lo nger eligible based on patient's age to complete this topic
--- OUTSIDE RECORDS SUMMARY | 2024-09-02 15:02 | XMS_ITS | Clinical Summary ---
Author Organization [facility] Address [address] [place] [address] Care Team Providers Care Stock Unloader Name Role Phone None, Provider MD Primary Care Provider Unavaila ble Allergies No known active allergies Medications medroxyPROGESTE Maikel (DEPO-PROVERA) injection ADMINISTER 1 ML IN THE MUSCLE EVERY 3 MONTHS 2 Active Clindamycin-Alvarez zoyl Per, Refr, 1.2-5 % Gel APPLY PEA SIZED AMOUNT TOPICALLY TO FACE DAILY IN THE MORNING 5 Active Active Problems Problem Noted Date Diagnosed Date Edema 11/30/2021 Left wrist pain 11/30/2021 Stiffness in joint 11/30/2021 Encounters Date Type Department Care Team Description 06/16/2024 3:00 PM VIDEO PRODUCTION ENGINEER Office Visit [facility] [address] [place] [address] Heriberto Harp MD Follow Up (Left wrist cyst) 06/16/2024 Travel 06/09/2024 Telephone [facility] [address] [place] [address] Heriberto Harp MD Appointment Request from Last 3 Months Social History Tobacco Use Types Packs/Day Years Used Date Smoking Tobacco: Never Smokeless Tobacco: Never Tobacco Cessation:Counseling Given: No Comments:non smoker Alcohol Use Standard Drinks/Week Comments Yes 0 (1 standard drink = 0.6 oz pur e alcohol) social PHQ-2 Answer Date Recorded Patient Health Questionnaire-2 Score 0 06/16/2024 Comments No Sex and Gender Information Value Date Recorded Sex Assigned at Female 06/09/2024 2:43 PM VIDEO PRODUCTION ENGINEER Legal Sex Female 1:01 PM VIDEO PRODUCTION ENGINEER Gender Identity Not on file Sexual Orientation Not on file Last Filed Vital Signs Vital Sign Reading Time Taken Comments Blood Pressure 115/79 06/16/2024 3:00 PM VIDEO PRODUCTION ENGINEER Pulse 81 06/16/2024 3:00 PM VIDEO PRODUCTION ENGINEER Temperature 37.6 C (99.6 F) 06/16/2024 3:00 PM VIDEO PRODUCTION ENGINEER Respiratory Rate 16 10/20/2021 11:00 AM CDT Oxygen Saturation 98% 10/20/2021 11:00 AM CDT Inhaled Oxygen Concentration - - Weight 62.8 kg (138 lb 6.4 oz) 06/16/2024 3:00 P M VIDEO PRODUCTION ENGINEER Height 170.2 cm (5' 7 ) 06/16/2024 3:00 PM VIDEO PRODUCTION ENGINEER Body Mass Index 21.68 06/16/2024 3:00 PM VIDEO PRODUCTION ENGINEER Plan of Treatment Health Maintenance Due Date Last Done Comments Cervical Cancer Screening Pap Smear (Age 30 to 64) Every 3 Years 1994 Annual Physical 1997 Hepatitis C 2012 COVID-19 Vaccine ( season) 2023 Cervical Cancer Screening Pap with HPV Testing (Age 30 to 64) Every 5 Years 2024 Cervical Cancer Screening with HPV 2024 DTaP, Tdap and Td Vaccines (8 - Td or Tdap) 09/20/2026 09/20/2016, 01/05/2009, 11/01/1999, Additional history exists Hepatitis B Vaccines Completed 1994, 1994, 1994 HPV Vaccines Completed 01/05/2009, 07/26/2008 Meningococcal Vaccine Aged Out 01/05/2009 No rayo julio eligible based on patient's age to complete this topic PHQ-2 (Physician [place]) Completed 06/16/2024 Meningococcal B Vaccine Aged Out No l onger eligible based on patient's age to complete this topic Pneumococcal Vaccine: Pediatrics (0 to 5 Years) and At-Risk Patients (6 to 49 Years) Aged Out No longer eligible based on patient's age to complete this topic RSV Immunizations Under 20 Months Aged Out No longer eligible based on patient's age to complete this topic Procedures Procedure Name Priority Date/Time Associated Diagnosis Comments OUS GUIDE NEEDLE PLCMT ORTHO Routine 06/16/2024 3:46 PM VIDEO PRODUCTION ENGINEER Ganglion cyst from Last 3 Months Results * OUS GUIDE NEEDLE PLCMT ORTHO (06/16/2024 3:46 PM VIDEO PRODUCTION ENGINEER) Anatomical Region Laterality Modality Ultrasound 06/16/2024 3:39 PM VIDEO PRODUCTION ENGINEER Narrative 06/16/2024 3:39 PM VIDEO PRODUCTION ENGINEER This report does not contain a radiologist's interpretation. Please review associated procedure and/or operative report. Procedure Note Donald Bocanegra MD - 06/16/2024 This report does not contain a radiologist's interpretation. Please review associated procedure and/or operative report. us Heriberto Harp MD ULTRASOUND Final Result from Last 3 Months Insurance Care Teams Stock Unloader Relationship Specialty Start Date End Date None, Provider, PCP - General 03/25/21
--- OUTSIDE RECORDS SUMMARY | 2024-09-02 15:02 | XMS_ITS | Clinical Summary ---
Author Organization [facility] Address [address] [place] [address] Care Team Providers Care Assistant Director Of Public Works Name Role Phone No, Physician Primary Care Provider [phone] Allergies No known active allergies Medications ibuprofen (ADVIL,MOTRIN) 800 mg tabletIndicatio ns:Anti-inflamm atory,Pain Take 1 tablet (800 mg total) by mouth 3 (three) times a day 21 tablet 12/27/2020 Active acetaminophen (TYLENOL) 325 mg tablet Take 2 tablets (650 mg total) by mouth every 4 (four) hours as needed for pain or fever 30 tablet 12/27/2020 Active cyclobenzaprine (FLEXERIL) 10 mg tablet Take 1 tablet (10 mg total) by mouth 2 (two) times a day as needed for muscle spasms 10 tablet 12/27/2020 Active Social History Tobacco Use Types Packs/Day Years Used Date Smoking Tobacco: Never Assessed Personal Safety Answer Date Recorded Getting School Help Needed Not on file 04/11 Comments Unknown Sex and Gender Information Value Date Recorded Sex Assigned at Not on file Legal Sex Female 7:12 PM WIRE RIGGER Gender Identity Not on file Sexual Orientation Not on file Last Filed Vital Signs Vital Sign Reading Time Taken Comments Blood Pressure 119/83 12/27/2020 8:39 PM CDT Pulse 84 12/27/2020 8:39 PM CDT Temperature 36.4 C (97.6 F) 12/27/2020 6:31 PM CDT Respiratory Rate 16 12/27/2020 8:39 PM CDT Oxygen Saturation 98% 12/27/2020 8:39 PM CDT Inhaled Oxygen Concentration - - Weight 56.2 kg (123 lb 14.4 oz) 12/27/2020 6:31 PM CDT Height 170.2 cm (5' 7 ) 12/27/2020 6:31 PM CDT Body Mass Index 19.41 12/27/2020 6:31 PM CDT Plan of Treatment Health Maintenance Due Date Last Done Comments Cervical Cancer Screening 1994 Depression Screening 1994 Hepatitis C Screening 1994 Varicella Vaccines (1 of 2 - 13+ 2-dose series) 2007 Regular Well Visit/Exam 18-64 2012 Influenza Vaccine (#1) 2023 02/23/2005 DTaP/Tdap/Td Vaccine (8 - Td or Tdap) 09/20/2026 09/20/2016, 01/05/2009, 11/01/1999, Additional history exists Hepatitis B Screening Completed 1994 , 1994, 1994 HPV Vaccines Completed 01/05/2009, 07/26/2008 Pneumococcal vaccine <65 Aged Out No longer eligible based on patient's age to complete this topic Additional Health Concerns Infection Onset Date Last Indicated COVID19 05/30/2020 05/29/2020 Insurance * Guarantor: Marycarmen Patton Account Type Relation to Patient Date of Phone Billing Address Personal/Family Self [address] [place] [phone] [employer] OOS * Guarantor: Marycarmen Patton Account Type Relation to Patient Date of Phone Billing Address Personal/Family Self [address] [place] [phone] [employer] CHOICE OOS Care Teams Assistant Director Of Public Works Relationship Specialty Start Date End Date No, Physician PCP - General 02/29/20
--- OUTSIDE RECORDS SUMMARY | 2024-09-02 15:02 | XMS_ITS | Encounter Summary ---
Author Organization [facility] Address [address] [place] [address] Care Team Providers Care Swatcher Name Role Phone Unavailable Primary Care Provider Unavailabl e Plan of Treatment Not on file Visit Diagnoses Not on file Insurance [facility] [place] PPO
--- OUTSIDE RECORDS SUMMARY | 2024-09-02 15:02 | XMS_ITS | Referral Summary ---
Author Organization [facility] Address [address] [place] [address] Care Team Providers Care Linen Supply Load Builder Name Role Phone No, Physician Primary Care Provider [phone] Allergies No known active allergies Medications ibuprofen [...] on file Legal Sex Female 7:12 PM AQUACULTURAL WORKER SUPERVISOR Gender Identity Not on file Sexual Orientation [...] 12/27/2020 6:31 PM CDT Plan of Treatment Not on file Additional Health Concerns Infection Onset Date Last Indicated COVID19 05/30/2020 05/29/2020 Insurance [employer] [facility] CHOICE OOS [employer] CHOICE OOS Care Teams Linen Supply Load Builder Relationship Specialty Start Date End Date No, Physician PCP - General 02/29/20
--- OUTSIDE RECORDS SUMMARY | 2024-09-02 15:02 | XMS_ITS | Data Portability ---
Author Organization [facility], Main Office Address [address] [place] [address] Assessment No assessment recorded. Plan of Treatment Reminders Order Date Submit Date Provider Last Modified By Organization Details Last Modified Time Details Appointments None recorded. Lab None recorded. Referral None recorded. Procedures None recorded. Surgeries None recorded. Imaging None recorded. Medication Orders Silvadene 1 % topical cream 2023 024 [facility] #[id number], [address] [facility], [place], [place], [id number], 16:08:42 Patient TargetsNo targets recorded. Patient InstructionsNo instructions recorded. Reason for Referral None Reported. Problems Name Problem SNOMED Code Status Onset Date Resolution Date Notes Provider Name and Address Organization Details Recorded Time Paronychia of toe of right foot 9583704541219 9102 Active 2023 RAMONE Garcia, [facility] 16:32:59 Problem Notes None recorded. Procedures Surgical History Date Name Laterality Status Provider Name and Address Organization Details Recorded Time Excision of ingrown toenail Right completed Rolando Bill DPM [address] [facility], [facility] [address], [place], [address], [facility] 08/22/2023 10:24:12 Imaging Results None recorded. Procedure Notes None recorded. Medical Equipment None Reported. Allergies No known drug allergies Medications Name Sig Start Date Stop Date Status Note LastModified by Organization Details LastModified Time silver sulfadiazine 1 % topical cream APPLY A 1/6 INCH LAYER TO ENTIRE BURN AREA TWICE DAILY active Not Available Not Available No t Available metronidazole 500 mg tablet TAKE 1 TABLET BY MOUTH EVERY 12 HOURS active Not Available Not Available No t Available acetaminophen 500 mg tablet TAKE 1 TABLET BY MOUTH EVERY 6 HOURS NEEDED FOR PAIN. active Not Available Not Available No t Available cephalexin 500 mg capsule TAKE 1 CAPSULE BY MOUTH THREE TIMES DAILY FOR 5 DAYS active Not Available Not Available No t Available ibuprofen 600 mg tablet TAKE 1 TABLET BY MOUTH EVERY 6 HOURS NEEDED FOR PAIN active Not Available Not Available No t Available Vitals Date Recorded Body height Body mass index (BMI) Body weight Body temperature Oxygen saturation Oxygen saturation in Arterial blood by Pulse oximetry Heart rate Systolic blood pressure Diastolic blood pressure Provider Name and Address Organization Details Last Updated DateTime 4 170.18 cm 23.3 kg/m2 72868.2 6 g 97.9 [degF] 99 % 99 % 71 /min 110 mm[Hg] 72 mm[Hg] RAMONE Garcia [facility] 16:20:06 Date Recorded Body height Body mass index (BMI) Body weight Oxygen saturation Oxygen saturation in Arterial blood by Pulse oximetry Body temperature Heart rate Provider Name and Address Organization Details Last Updated DateTime 4 170.18 cm 23.3 kg/m2 22521.2 6 g 97 % 97 % 98.2 [degF] 79 /min RAMONE Garcia Lucibel [facility] [employer] 16:13:45 Social History Question Answer Notes LastModified by [employer] Details LastModified Time Tobacco Smoking Status Never Smoker RAMONE Garcia [facility] [employer] 08/21/2023 16:12:26 What Is Your Level Of Caffeine Consumption? Occasional [email or web address] Information not available 08/21/2023 What Was The Date Of Your Most Recent Tobacco Screening? 08/29/2023 Information not available 08/29/2023 Has Tobacco Cessation Counseling Been Provided? No [email or web address] Information not available 08/21/2023 Sex: Unknown Functional Status Question Answer Note LastModified by [employer] Details LastModified Time Do you use any illicit or recreational drugs? No [email or web address] Information not available 08/21/2023 Do you or have you ever used any other forms of tobacco or nicotine? No [email or web address] Information not available 08/21/2023 What is your level of alcohol consumption? Occasional Information not available 08/21/2023 Mental Status None recorded. Family History Nothing Reported. Medical History No medical history recorded. Gynecological HistoryNo gynecological history recorded. Obstetrics History GPAL:G 0 P 0 0 0 0 Past Encounters Encounter ID Performer Location Encounter Start Date Encounter Closed Date Diagnosis/Indication Diagnosis SNOMED-CT Code Diagnosis ICD10 Code Diagnosis Note [id number] Rolando Bill DPM [facility] [place] [address] [address] 08/21/2023 15:58:19 11/26/2023 17:32:33 Paronychia of toe of right foot [id number] 0999196 L03.479 [id number] Rolando Bill DPM [facility] [place] [address] [address] 08/29/2023 16:08:07 11/27/2023 04:08:21 Health Concerns Section Related Observation LastModified by Organization Detai ls LastModified Time None Recorded Concern Status LastModified by Organization Details LastModified Time None Recorded Advance Directives Directive None Recorded Payers Encounter Date Sequence Insurance Name Policy Number Policy Ayala Covered Member ID Ayala Member ID Guarantor Name 08/21/2023 1 [facility] (MEDICAID HMO) [id number] Marycarmen Booker [id number] Marycarmen Patton 08/29/2023 1 [facility] (MEDICAID HMO) [id number] [facility] [id number] Marycarmen Patton Notes Date Note Type Note Provider Name and Address Organization Details Recorded Time 08/21/2023 text/html Ingrown nail, Rt great toe. Rolando Bill DPM [address] [address], [place], [address], [facility] 08/22/2023 10:24:18 08/29/2023 text/html Pt RTC one wk s/p P and A, hallux rt. Fib border. Soaking and dressing as instructed. Moderate pain, subsiding. Rolando Bill DPM [address] [address], [place], [address], [place] [facility] 08/30/2023 09:28:06 OBGyn Episode No OBEpisode recorded.
--- OUTSIDE RECORDS SUMMARY | 2024-09-02 15:02 | XMS_ITS | Encounter Summary ---
Author Organization [facility] Address [address] [place] [address] Care Team Providers Care Director New Product Name Role Phone None, Provider Primary Care Provider Riley hinds Encounter Details Date Type Department Care Team (Late st Contact Info) Description 10/12/2021 Prep for Procedure [place] Pre-Admission Testing [facility] [place], [place] [id number] Heriberto Harp MD [address] [place] [phone] Social History Tobacco Use Types Packs/Day Years Used Date Smoking Tobacco: Never Smokeless Tobacco: Never Comments:non smoker Alcohol Use Standard Drinks/Week Comments Yes 0 (1 standard drink = 0.6 oz pur e alcohol) social PHQ-2 Answer Date Recorded PHQ-2 Score - If the patient scores above 3, please move on to questions 3-9 0 10/05/2021 Comments No Sex and Gender Information Value Date Recorded Sex Assigned at Female 06/09/2024 2:43 PM AUTOPSY ASSISTANT Legal Sex Female 1:01 PM AUTOPSY ASSISTANT Gender Identity Not on file Sexual Orientation Not on file COVID-19 Exposure Response Date Recorded In the last 10 days, have yo u been in contact with someone who was confirmed or suspected to have Coronavirus/COVID-19? No / Unsure 10/12/2021 11:22 AM CDT documented as of this encounter Plan of Treatment Not on file documented as of this encounter Results * CORONAVIRUS (COVID 19) (10/17/2021 9:31 AM CDT) SPEC DESCRIPTION NASAL 10/18/19 10:44 AM CDT [facility] CORONAVIRUS SARS COV 2 PCR (RESP) NEGATIVE NEGATIVE 10/17/2021 8:05 PM CDT [facility] Comment: THE SARS-CoV-2 TEST HAS BEEN AUTHORIZED BY THE FDA UNDER AN EUA FOR USE BY AUTHORIZED LABORATORIES. PERFORMED BY NUCLEIC ACID AMPLIFICATION PCR FIRST TEST NO 10/17/2021 10:44 AM CDT [facility] EMPLOYED IN HEALTHCARE NO 10/17/2021 10:44 AM CDT [facility] SYMPTOMATIC DEFINED BY CDC NO 10/17/2021 10:44 AM CDT [facility] HOSPITALIZATION STATUS NO 10/17/2021 10:44 AM CDT [facility] PATIENT IN ICU NO 10/17/2021 10:44 AM CDT [facility] RESIDENT OF [facility] NO 10/17/2021 10:44 AM CDT [facility] NOT 10/17/2021 10:44 AM CDT [facility] NASAL STRUCTURE / Unknown 10/17/2021 9:31 AM CDT us Heriberto Harp MD MICROBIOLOGY - GENERAL ORDERABL ES Final Result [facility] [address] [place] [address], [place] [phone] [facility] [address] [place] [address], [place] [phone] documented in this encounter Visit Diagnoses Diagnosis Preop examination- Primary Preoperative examination, unspecified documented in this encounter Additional Health Concerns Infection Onset Date Last Indicated Resolved Time COVID-19 Rule Out 10/17/2021 10/17/2021 10/17/2021 8:05 PM CDT documented as of this encounter Care Teams Director New Product Relationship Specialty Start Date End Date None, Provider, PCP - General 03/25/21 documented as of this encounter
--- OUTSIDE RECORDS SUMMARY | 2024-09-02 15:27 | XMS_ITS | Encounter Summary ---
Author Organization [facility] Address [address] [place] [address] Care Team Providers Care Drilling Fluids Specialist Name Role Phone None, Provider Primary Care Provider Riley hinds Encounter Details Date Type Department Care Team (Late st Contact Info) Description 10/12/2021 Prep for Procedure [place] Pre-Admission Testing [facility] [place], [place] [id number] Heriberto Harp MD [address] [place] [id number] Social History Tobacco Use Types Packs/Day Years [...] Sex Assigned at Female 06/09/2024 2:43 PM EVS MANAGER Legal Sex Female 1:01 PM EVS MANAGER Gender Identity Not on file Sexual Orientation [...] SPEC DESCRIPTION NASAL 10/18/19 10:44 AM CDT [facility] CORONAVIRUS SARS COV 2 PCR (RESP) NEGATIVE NEGATIVE 10/17/2021 8:05 PM CDT [facility] Comment: THE SARS-CoV-2 TEST HAS BEEN AUTHORIZED BY THE FDA UNDER AN EUA FOR USE BY AUTHORIZED LABORATORIES. PERFORMED BY NUCLEIC ACID AMPLIFICATION PCR FIRST TEST NO 10/17/2021 10:44 AM CDT [facility] EMPLOYED IN HEALTHCARE NO 10/17/2021 10:44 AM CDT [facility] SYMPTOMATIC DEFINED BY CDC NO 10/17/2021 10:44 AM CDT [facility] HOSPITALIZATION STATUS NO 10/17/2021 10:44 AM CDT [facility] PATIENT IN ICU NO 10/17/2021 10:44 AM CDT [facility] RESIDENT OF [facility] NO 10/17/2021 10:44 AM CDT [facility] NOT 10/17/2021 10:44 AM CDT [facility] NASAL STRUCTURE / Unknown 10/17/2021 9:31 AM CDT us Heriberto Harp MD MICROBIOLOGY - GENERAL ORDERABL ES Final Result [facility] [address] [place] [address], [place] [phone] [facility] [address] [place] [address], [place] [phone] documented in this encounter Visit Diagnoses Diagnosis Preop examination- Primary Preoperative examination, unspecified documented in this encounter Additional Health Concerns Infection Onset Date Last Indicated Resolved Time COVID-19 Rule Out 10/17/2021 10/17/2021 10/17/2021 8:05 PM CDT documented as of this encounter Care Teams Drilling Fluids Specialist Relationship Specialty Start Date End Date None, Provider, PCP - General 03/25/21 documented as of this encounter
--- OUTSIDE RECORDS SUMMARY | 2024-09-02 15:27 | XMS_ITS | Encounter Summary ---
Author Organization [facility] Address [address] [place] [address] Care Team Providers Care Shell Grader Name Role Phone Unavailable Primary Care Provider Unavailabl e Plan of Treatment Not on file Visit Diagnoses Not on file Insurance [facility] [place] PPO
--- OUTSIDE RECORDS SUMMARY | 2024-09-02 15:27 | XMS_ITS | Clinical Summary ---
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
--- OUTSIDE RECORDS SUMMARY | 2024-09-02 15:27 | XMS_ITS | Referral Summary ---
Author Organization [facility] Address [address] [place] [address] Care Team Providers Care Service Worker Name Role Phone No, Physician Primary Care Provider [phone] Allergies No known active allergies Medications ibuprofen [...] on file Legal Sex Female 7:12 PM DENTURE CONTOUR WIRE SPECIALIST Gender Identity Not on file Sexual Orientation [...] Date Last Indicated COVID19 05/30/2020 05/29/2020 Insurance [employer] [facility] OOS [employer] CHOICE OOS Care Teams Service Worker Relationship Specialty Start Date End Date No, Physician PCP - General 02/29/20
--- OUTSIDE RECORDS SUMMARY | 2024-09-02 15:27 | XMS_ITS | Clinical Summary ---
Author Organization [facility] Address [address] [place] [address] Care Team Providers Care Patent Counsel Name Role Phone Unavailable Primary Care Provider [...] patient's age to complete this topic Insurance [facility] [place] PPO
--- OUTSIDE RECORDS SUMMARY | 2024-09-02 15:27 | XMS_ITS | Clinical Summary ---
Author Organization [facility] Address [address] [place] [address] Care Team Providers Care Product Development Intern Name Role Phone None, Provider MD Primary [...] Department Care Team Description 06/16/2024 3:00 PM UTILITIES SERVICE INVESTIGATOR Office Visit [facility] [address] [place] [address] Heriberto Harp MD Follow Up (Left wrist cyst) 06/16/2024 Travel 06/09/2024 Telephone [facility] [address] [place] [address] Heriberto Harp MD Appointment Request from Last [...] Sex Assigned at Female 06/09/2024 2:43 PM UTILITIES SERVICE INVESTIGATOR Legal Sex Female 1:01 PM UTILITIES SERVICE INVESTIGATOR Gender Identity Not on file Sexual Orientation Not on file Last Filed Vital Signs Vital Sign Reading Time Taken Comments Blood Pressure 115/79 06/16/2024 3:00 PM UTILITIES SERVICE INVESTIGATOR Pulse 81 06/16/2024 3:00 PM UTILITIES SERVICE INVESTIGATOR Temperature 37.6 C (99.6 F) 06/16/2024 3:00 PM UTILITIES SERVICE INVESTIGATOR Respiratory Rate 16 10/20/2021 11:00 AM CDT Oxygen Saturation 98% 10/20/2021 11:00 AM CDT Inhaled Oxygen Concentration - - Weight 62.8 kg (138 lb 6.4 oz) 06/16/2024 3:00 P M UTILITIES SERVICE INVESTIGATOR Height 170.2 cm (5' 7 ) 06/16/2024 3:00 PM UTILITIES SERVICE INVESTIGATOR Body Mass Index 21.68 06/16/2024 3:00 PM UTILITIES SERVICE INVESTIGATOR Plan of Treatment Health Maintenance Due Date [...] age to complete this topic PHQ-2 (Physician [place]) Completed 06/16/2024 Meningococcal B Vaccine Aged Out [...] NEEDLE PLCMT ORTHO Routine 06/16/2024 3:46 PM UTILITIES SERVICE INVESTIGATOR Ganglion cyst from Last 3 Months Results * OUS GUIDE NEEDLE PLCMT ORTHO (06/16/2024 3:46 PM UTILITIES SERVICE INVESTIGATOR) Anatomical Region Laterality Modality Ultrasound 06/16/2024 3:39 PM UTILITIES SERVICE INVESTIGATOR Narrative 06/16/2024 3:39 PM UTILITIES SERVICE INVESTIGATOR This report does not contain a radiologist's interpretation. Please review associated procedure and/or operative report. Procedure Note Donald Bocanegra MD - 06/16/2024 This report does not contain a radiologist's interpretation. Please review associated procedure and/or operative report. us Heriberto Harp MD ULTRASOUND Final Result from Last 3 Months Insurance Care Teams Product Development Intern Relationship Specialty Start Date End Date None, Provider, PCP - General 03/25/21
--- OUTSIDE RECORDS SUMMARY | 2024-09-02 15:27 | XMS_ITS | Clinical Summary ---
Author Organization [facility] Care Team Providers Care Misdraw Hand Name Role Phone Unavailable Primary Care Provider Unavailabl e Social History Tobacco Use Types Packs/Day Years Used Date Smoking Tobacco: Never Assessed Comments Unknown Sex and Gender Information Value Date Recorded Sex Assigned at Not on file Legal Sex Female 7:05 AM EAP SPECIALIST Gender Identity Not on file Sexual [...]
--- OUTSIDE RECORDS SUMMARY | 2024-09-02 15:27 | XMS_ITS | Clinical Summary ---
Author Organization [facility] Address [address] [place] [address] Care Team Providers Care Webmethods Consultant Name Role Phone Unavailable Primary Care Provider Unavailabl e Source Comments [facility],non-owned Affiliates and Associated Physician Practices is amultiple site organization consisting of ambulatory clinics and hospital sitesin [place], [place], [place] and [place]. This disclosure is being madepursuant to the Care Everywhere program and may not contain all information available regarding this patient. Last updated [facility] Allergies No known active allergies Medications * Be aware that medications may not be up to date on this document. Alwaysverify current medications with the patient. 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 Gender Identity Not on file Sexual [...] patient's age to complete this topic Insurance [facility] SELF PAY NO INSURANCE Member Subscriber Plan / Payer (Ef fective for All Dates) Name:Atiya Dyer Member ID:Not on file Relation to Subscriber:Not on file Name:ATIYA DYER Subscriber ID:Not on file Address: [address] [place] [address] Payer ID:Not on file Group ID:Not on file Type:Self Pay Address: [place], [place] [facility] SELF PAY NO INSURANCE Member Subscriber Plan / Payer (Ef fective for All Dates) Name:Atiya Dyer R Member ID:Not on file Relation to Subscriber:Not on file Name:ATIYA DYER Subscriber ID:Not on file Address: [address] [place] [address] Payer ID:Not on file Group ID:Not on file Type:Self Pay Address: [place], [place] Advance Directives Documents on File Type Date Recorded 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
--- NOTE | 2024-09-02 15:58 | ED.EXTPRO ---
HPI - Extremity Problem General Chief complaint: Extremity Problem,Nontraumatic Stated complaint: RLE pain, R hand pain Time Seen by Provider: 09/02/24 15:19 History of Present Illness HPI Narrative: 29-year-old female presents to the emergency department for right wrist pain for the past couple of days and right hip pain for the past week. Patient denies injury or trauma to these regions. States the pain of the right wrist is over the volar aspect of the distal radius, worse with extension of the wrist. She notes that she works for [employer] and lifts heavy boxes and low chills all day. She is also reporting pain to the right lateral/posterior hip that radiates down the posterior thigh to her knee. States pain is worse with lying down, better when she is ambulating and stretching her leg. She denies swelling to the extremity, injury or trauma, back pain, numbness or tingling. Related Data Allergies Allergy/AdvReac Type Severity Reaction Status Date / Time No Known Allergies Allergy Verified 09/02/24 14:58 Review of Systems Review of Systems: All systems reviewed & are unremarkable except as noted in HPI and below PMFSH Past Medical History Medical History No significant medical problems Surgical History Surgical History H/O excision of ganglion cyst History of hysteroscopy D & C Hx of appendectomy Social History Social History Smoking status: Never smoker Alcohol intake: current Alcohol use details: 1 PER MONTH Substance use: never Do You Feel Safe in your Home?: Yes Lack of Transportation: No Lack of Food: Never True Current Housing: I Have Housing Concerned About Future Housing: No Difficulty Paying Gas/Electric Bills: No Difficulty Paying for Meds: No Currently Unemployed: No Education: High School Diploma/GED Difficulty w/ Childcare or Family Care: No Living arrangements: with family Occupation/Education: occupation Gender identity (if verbalized by the patient): Female Exam Narrative: GENERAL: Well-appearing, well-nourished, and in no acute distress. HEAD: Normocephalic, atraumatic. EYES: EOMI. ENT: Nares clear, no rhinorrhea or epistaxis. Mucous membranes moist. NECK: Supple. BACK: No midline thoracolumbar spinous tenderness, crepitus, step-offs or deformities CHEST: Clear to auscultation. No respiratory distress. HEART: Regular rate and rhythm. No murmur heard. Normal peripheral pulses. ABDOMEN: Soft, nontender, nondistended, normal active bowel sounds. EXTREMITIES: RUE: Tenderness over the volar aspect of the distal radius with no obvious deformity or overlying skin changes, no edema, full active and passive range of motion of wrist, no tenderness remainder of extremity hand. Radial, median and ulnar nerves are intact. Treating And Pumping Supervisor strength 5/5. Sensation intact throughout. Radial pulse 2 +. Cap refill less than 2. RLE: Tenderness to the lateral aspect of the right hip and directly over the piriformis with no overlying skin changes. Full active and passive range of motion of hip without difficulty, no tenderness remainder of extremity. DP pulse 2 +. Sensation intact. SKIN: Warm, dry, no rash. NEURO: No focal deficits. Alert and oriented x3 MDM - Extremity (Nontraumatic) MDM Narrative Medical decision making narrative: 29-year-old female presents to emergency department for atraumatic right wrist pain and hip pain. See HPI for further history. Exam is significant for the above. Patient is neurovascularly intact. No midline spinous tenderness. No neurological deficits. X-ray of the right wrist and right hip show no acute findings. Presentation of the right wrist is consistent with a right wrist sprain, suspected overuse injury or strain from her work. She was given an [place] wrap and encouraged to RICE> Her right hip presentation is consistent with piriformis syndrome. Advised stretching. Flexeril and ibuprofen provided for pain. Discussed follow-up with PCP and strict ED return precautions. She is agreeable with the plan verbalized understanding. Discharged in stable condition. Discharge Plan Discharge Clinical Impression: Sprain and strain of right wrist, Piriformis syndrome of right side Patient Disposition: Home Condition: Stable Instructions: Antibiotic Form, Piriformis Syndrome (ED), Wrist Sprain (ED) Additional Instructions: You were evaluated in the emergency department for right hip pain and right wrist pain. Your x-ray showed no broken bones. Your exam is consistent with a sprained wrist and piriformis syndrome as discussed. Please rest, ice, elevate your wrist, stretch or glued/hip and follow-up closely with her PCP. Take the medications as needed as directed. Return to the emergency department if you develop any new or worsening symptoms. Patient Language: Indonesian Prescriptions: New cyclobenzaprine 10 mg tablet 10 mg PO TID PRN (Reason: muscle spasm) Qty: 14 0RF ibuprofen 800 mg tablet 800 mg PO TID PRN (Reason: pain) Qty: 20 0RF Follow-up/Referrals: Amador Betancur MD [Primary Care Provider] -
[2024-09-02] MEDS: CYCLOBENZAPRINE HCL 10 MG TABLET PO (16:09)
[2024-09-02] MEDS: IBUPROFEN 400 MG TABLET 800 MG PO (16:09)
[2024-09-02 16:30] VITALS: BP 130/71; PULSE 77; RESP 19; O2SAT 100
== END 2024-09-02 16:52 | disposition home or self-care (01) ==
PROVIDERS: Emergency Provider Physician Assistant; PCP Emergency Medicine
DX: S63.501A Unspecified sprain of right wrist, initial encounter (principal); S66.911A Strain of unspecified muscle, fascia and tendon at wrist and hand level, right hand, initial encounter; G57.01 Lesion of sciatic nerve, right lower limb; X50.0XXA Overexertion from strenuous movement or load, initial encounter
CPT/HCPCS: 73110; 73502; 99284; A9270

== ENCOUNTER 2024-12-17 10:52 | Emergency (ER) | payer BC, SELFPAY ==
--- NOTE | ~2024-12-17 | XR_ITS ---
XR thoracic spine 3V Indication: pain Comparison: None Findings: The vertebral heights are intact. No fracture or subluxation. The disc heights are intact. Soft tissues unremarkable Impression: No acute abnormality. Reviewed, dictated and finalized at location A. Impression: No acute abnormality.
--- NOTE | ~2024-12-17 | XR_ITS ---
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 No fracture or subluxation. The disc heights are intact. Soft tissues unremarkable Impression: No acute abnormality. Reviewed, dictated and finalized at location A. Impression: No acute abnormality.
--- NOTE | ~2024-12-17 | XR_ITS ---
EXAMINATION: XR ribs RT 2V w CXR 2V DATE: 12/17/2024 14:10 INDICATION: Pain. TECHNIQUE: Frontal and lateral images of the chest were obtained. 3 images of the right ribs were obtained. COMPARISON: None available FINDINGS: No rib fractures identified. No pneumothorax. No focal infiltrates, pleural effusion or pulmonary edema. Cardiomediastinal silhouette is normal. IMPRESSION: 1. No rib fracture or acute cardiopulmonary disease. If symptoms persist or worsen, consider a short-term follow-up study or additional imaging for further assessment. Reviewed, dictated and finalized at location Q. IMPRESSION: 1. No rib fracture or acute cardiopulmonary disease. If symptoms persist or worsen, consider a short-term follow-up study or additio nal imaging for further assessment.
--- NOTE | ~2024-12-17 | XR_ITS ---
EXAMINATION: XR shoulder RT min 2V, 12/17/2024 13:30 CDT HISTORY: pain COMPARISON: No comparisons available. Findings: No acute fracture or malalignment. No significant degenerative changes. Soft tissues unremarkable. Impression: No acute fracture or malalignment. Reviewed, dictated and finalized at location A. Impression: No acute fracture or malalignment.
--- NOTE | ~2024-12-17 | XR_ITS ---
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 Findings: No acute fracture or malalignment. No significant degenerative changes. Soft tissues unremarkable. Impression: No acute fracture or malalignment. Reviewed, dictated and finalized at location A. Impression: No acute fracture or malalignment.
--- OUTSIDE RECORDS SUMMARY | 2024-12-17 10:57 | XMS_ITS | Clinical Summary ---
Author Organization [facility] Address [address] [place] [address] Care Team Providers Care Cocoa Bean Roaster Helper Name Role Phone Unavailable Primary Care Provider [...] Maintenance Due Date Last Done Comments Dental Oral Exam 1994 Dental Prophylaxis 1994 Dental X-Ray: Bitewings 1994 Dental X-Ray: Full Mouth 1994 Dental X-Ray: Panoramic 1994 Insurance [facility] [place] PPO
--- OUTSIDE RECORDS SUMMARY | 2024-12-17 10:57 | XMS_ITS | Encounter Summary ---
Author Organization [facility] Health Address [address] [place] [address] Care Team Providers Care Production Operator Name Role Phone Unavailable Primary Care Provider Unavailabl e Plan of Treatment Not on file Visit Diagnoses Not on file Insurance [facility] [place] [facility] [place] PPO
--- OUTSIDE RECORDS SUMMARY | 2024-12-17 10:57 | XMS_ITS | Clinical Summary ---
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
[2024-12-17 11:36] VITALS: BP 106/69; PULSE 79; RESP 16; TEMP 36.7; O2SAT 100
--- OUTSIDE RECORDS SUMMARY | 2024-12-17 12:23 | XMS_ITS | Encounter Summary ---
Author Organization [facility] Health Address [address] [place] [address] Care Team Providers Care Java Support Engineer Name Role Phone Unavailable Primary Care Provider Unavailabl e Plan of Treatment Not on file Visit Diagnoses Not on file Insurance [facility] [place] [facility] [place] PPO
--- OUTSIDE RECORDS SUMMARY | 2024-12-17 12:23 | XMS_ITS | Encounter Summary ---
Author Organization [facility] Address [address] [place] [address] Care Team Providers Care Drafter Directional Survey Name Role Phone None, Provider Primary Care Provider Riley hinds Encounter Details Date Type Department Care Team (Late st Contact Info) Description 10/12/2021 Prep for Procedure [place] Pre-Ad[facility] Testing [facility] [place], [place] [id number] Heriberto Harp MD [address] [place] [phone] Social History Tobacco Use Types Packs/Day Years [...] Sex Assigned at Female 06/09/2024 2:43 PM NETWORK ENGINEERING ADVISOR Legal Sex Female 1:01 PM NETWORK ENGINEERING ADVISOR Gender Identity Not on file Sexual Orientation [...] SPEC DESCRIPTION NASAL 10/18/19 10:44 AM CDT [facility] CORONAVIRUS SARS COV 2 PCR (RESP) NEGATIVE NEGATIVE 10/17/2021 8:05 PM CDT [facility] Comment: THE SARS-CoV-2 TEST HAS BEEN AUTHORIZED BY THE FDA UNDER AN EUA FOR USE BY AUTHORIZED LABORATORIES. PERFORMED BY NUCLEIC ACID AMPLIFICATION PCR FIRST TEST NO 10/17/2021 10:44 AM CDT [facility] EMPLOYED IN HEALTHCARE NO 10/17/2021 10:44 AM CDT [facility] SYMPTOMATIC DEFINED BY CDC NO 10/17/2021 10:44 AM CDT [facility] HOSPITALIZATION STATUS NO 10/17/2021 10:44 AM CDT [facility] PATIENT IN ICU NO 10/17/2021 10:44 AM CDT [facility] RESIDENT OF [facility] NO 10/17/2021 10:44 AM CDT [facility] NOT 10/17/2021 10:44 AM CDT [facility] NASAL STRUCTURE / Unknown 10/17/2021 9:31 AM CDT us Heriberto Harp MD MICROBIOLOGY - GENERAL ORDERABL ES Final Result [facility] [address] [place] [address], [place] [phone] [facility] [address] [place] [address], [place] [phone] documented in this encounter Visit Diagnoses Diagnosis Preop examination- Primary Preoperative examination, unspecified documented in this encounter Additional Health Concerns Infection Onset Date Last Indicated Resolved Time COVID-19 Rule Out 10/17/2021 10/17/2021 10/17/2021 8:05 PM CDT documented as of this encounter Care Teams Drafter Directional Survey Relationship Specialty Start Date End Date None, Provider, PCP - General 03/25/21 documented as of this encounter
--- OUTSIDE RECORDS SUMMARY | 2024-12-17 12:23 | XMS_ITS | Clinical Summary ---
Author Organization [facility] Health Address [address] [place] [address] Care Team Providers Care Volunteer Manager Name Role Phone Unavailable Primary Care Provider [...] Mouth 1994 Dental X-Ray: Panoramic 1994 Insurance [facility] [place] PPO
--- OUTSIDE RECORDS SUMMARY | 2024-12-17 12:23 | XMS_ITS | Clinical Summary ---
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
--- OUTSIDE RECORDS SUMMARY | 2024-12-17 12:23 | XMS_ITS | Clinical Summary ---
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 Gender Identity Not on file Sexual Orientation [...] 6:31 PM CDT Height 170.2 cm (5' 7) 12/27/2020 6:31 PM CDT Body Mass Index 19.41 12/27/2020 6:31 PM CDT Plan of Treatment Not on file Additional Health Concerns Infection Onset Date Last Indicated COVID19 05/30/2020 05/29/2020 Insurance [facility] CHO[facility] OOS Member Subscriber Plan / Payer (Ef fective 2018-Present) Name:Marycarmen Patton Relation to Subscriber:Self Name:Marycarmen Patton Payer ID:[id number] (NAIC) Type:[facility] Address: [place] [address] [employer] CHOICE OOS Member Subscriber Plan / Payer (Ef fective 2018-Present) Name:Marycarmen Patton Relation to Subscriber:Self Name:Marycarmen Patton Payer ID:[id number] (NAIC) Type:[facility] [employer] Address: [address] [place] [address] Care Teams Electrical Technician Instructor Relationship Specialty Start Date End Date No, Physician PCP - General 02/29/20
--- OUTSIDE RECORDS SUMMARY | 2024-12-17 12:23 | XMS_ITS | Clinical Summary ---
Author Organization [facility] Address [address] [place] [address] Care Team Providers Care Medication Specialist Name Role Phone None, Provider MD Primary [...] wrist pain 11/30/2021 Stiffness in joint 11/30/2021 Social History Tobacco Use Types Packs/Day Years [...] Sex Assigned at Female 06/09/2024 2:43 PM AUTO ELECTRICAL TECHNICIAN Legal Sex Female 1:01 PM AUTO ELECTRICAL TECHNICIAN Gender Identity Not on file Sexual Orientation Not on file Last Filed Vital Signs Vital Sign Reading Time Taken Comments Blood Pressure 115/79 06/16/2024 3:00 PM AUTO ELECTRICAL TECHNICIAN Pulse 81 06/16/2024 3:00 PM AUTO ELECTRICAL TECHNICIAN Temperature 37.6 C (99.6 F) 06/16/2024 3:00 PM AUTO ELECTRICAL TECHNICIAN Respiratory Rate 16 10/20/2021 11:00 AM CDT Oxygen Saturation 98% 10/20/2021 11:00 AM CDT Inhaled Oxygen Concentration - - Weight 62.8 kg (138 lb 6.4 oz) 06/16/2024 3:00 P M AUTO ELECTRICAL TECHNICIAN Height 170.2 cm (5' 7) 06/16/2024 3:00 PM AUTO ELECTRICAL TECHNICIAN Body Mass Index 21.68 06/16/2024 3:00 PM AUTO ELECTRICAL TECHNICIAN Plan of Treatment Health Maintenance Due Date [...] age to complete this topic PHQ-2 (Physician [place]) Completed 06/16/2024 Meningococcal B Vaccine Aged Out [...] patient's age to complete this topic Insurance Care Teams Medication Specialist Relationship Specialty Start Date End Date None, Provider, PCP - General 03/25/21
[2024-12-17] MEDS: KETOROLAC (*BKC) 60 MG/2 ML VIAL IM (13:16)
--- NOTE | 2024-12-17 13:45 | ED_ITS ---
HPI - Trauma General Chief Complaint: Extremity Injury, Upper Stated Complaint: R shoulder/R hip pain Time Seen by Provider: 12/17/24 11:39 Source: patient Mode of arrival: ambulatory Limitations: no limitations History of Present Illness HPI narrative: Patient is a 29-year-old female who presents the ED with report of right shoulder and right hip pain. 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 She did not fall. Complains of pain to the right-sided shoulder, right sided neck, right hip. Has been using lidocaine patches with minimal relief. Reports today, she began having some discomfort throughout her right anterior shoulder with deep breathing. Denies shortness of breath. Denies numbness, tingling. Denies weakness of extremities. Related Data Allergies Allergy/AdvReac Type Severity Reaction Status Date / Time No Known Allergies Allergy Verified 09/02/24 14:58 Review of Systems Review of Systems: All systems reviewed & are unremarkable except as noted in HPI. All systems reviewed & are unremarkable except as noted in HPI and below PMFSH Past Medical History Medical History No significant medical problems Surgical History Surgical History H/O excision of ganglion cyst History of hysteroscopy D & C Hx of appendectomy Social History Social History Smoking status: Never smoker Alcohol intake: current Alcohol use details: 1 PER MONTH Substance use: never Do You Feel Safe in your Home?: Yes Lack of Transportation: No Lack of Food: Never True Current Housing: I Have Housing Concerned About Future Housing: No Difficulty Paying Gas/Electric Bills: No Difficulty Paying for Meds: No Currently Unemployed: No Education: High School Diploma/GED Difficulty w/ Childcare or Family Care: No Living arrangements: with family Occupation/Education: occupation Gender identity (if verbalized by the patient): Female Exam Narrative: GENERAL: Well appearing, well-nourished, non-toxic, in no acute distress. HEAD: Normocephalic, atraumatic. RESPIRATORY: Airway patent, respirations nonlabored. CARDIOVASCULAR: Regular rate and rhythm ABDOMINAL: Soft, nontender, nondistended. Normoactive BS. MUSCULOSKELETAL: Moves all extremities. No gross deformities. No significant C/T/L midline spinal tenderness. No palpable bony deformities or step offs. Mild tenderness palpation over right upper trapezius region posterior right shoulder. No significant chest wall tenderness. Minimal tenderness over right lateral right hip joint. SKIN: Warm, dry, normal color. NEURO: A&O X3. Speech clear. Cranial nerves II-XII grossly intact. Steady gait. No ataxic movements. PSYCHIATRIC: Appropriate mood and affect. Normal interaction. Course Vital Signs Vital signs: Vital Signs Temperature 98.0 F 12/17/24 11:36 Pulse Rate 79 12/17/24 11:36 Respiratory Rate 16 12/17/24 11:36 Blood Pressure 106/69 12/17/24 11:36 Pulse Oximetry 100 12/17/24 11:36 Oxygen Delivery Room Air 12/17/24 11:36 Temperature 97.9 F 12/17/24 14:57 Pulse Rate 77 12/17/24 14:57 Respiratory Rate 16 12/17/24 14:57 Blood Pressure 116/78 12/17/24 14:57 Pulse Oximetry 100 12/17/24 14:57 Oxygen Delivery Room Air 12/17/24 11:36 MDM - Trauma MDM Narrative Medical decision making narrative: Patient?s injury is consistent with musculoskeletal etiology. No signs of neurologic or vascular compromise on physical examination. Compartments are soft without signs of compartment syndrome. No neurologic focal deficits on exam. X-rays of cervical and thoracic spine negative. X-ray of right hip/pelvis negative. X-ray of right shoulder negative. X-ray of right ribs with chest clear, no evidence of fracture. Pain is consistent musculoskeletal etiology/muscular strain. Patient is felt to be stable for discharge home and further outpatient management and treatment. Will discharge with a few muscle relaxers, lidocaine patches for home use. Advised to continue anti-inflammatories. Given strict return precautions. Patient is in agreement with plan. Discharged in stable condition. Medical Records Attestation: I reviewed the patient's medical records. Imaging Data Attestation: I personally reviewed and interpreted this imaging study as follows: Radiologist's impression: ITS Impressions Shoulder X-Ray 12/17/24 14:12 Impression: No acute fracture or malalignment. Hip/Pelvis X-Ray 12/17/24 14:13 Impression: No acute fracture or malalignment. Cervical Spine X-Ray 12/17/24 14:14 Impression: No acute abnormality. Thoracic Spine X-Ray 12/17/24 14:15 Impression: No acute abnormality. Ribs w/Chest X-Ray 12/17/24 14:16 IMPRESSION: 1. No rib fracture or acute cardiopulmonary disease. If symptoms persist or worsen, consider a short-term follow-up study or additional imaging for further assessment. Discharge Plan Discharge Clinical Impression: Strain of cervical portion of right trapezius muscle Strain of right shoulder Qualifiers: Encounter type: initial encounter Qualified Code(s): S46.911A - Strain of unspecified muscle, fascia and tendon at shoulder and upper arm level, right arm, initial encounter Strain of right hip Qualifiers: Encounter type: initial encounter Qualified Code(s): S76.011A - Strain of muscle, fascia and tendon of right hip, initial encounter Patient Disposition: Home Condition: Stable Instructions: Antibiotic Form, Hip Sprain (ED), Shoulder Sprain (ED) Additional Instructions: Your imaging did not show any evidence of fractures. You may be sore over the next few days. Continue Tylenol and Ibuprofen as needed for pain. You may use ice/heat, lidocaine patches to area of pain. Take muscle relaxers as needed and prescribed. Recommend taking these at night as they may cause sedation. Do not drive, operate heavy machinery, drink alcohol while on muscle relaxers as this may cause further sedation. Follow-up with your primary care doctor for further evaluation if needed. Return to the ED if you experience worsening or severe pain, recurrent injury, numbness in arms or legs, going to the bathroom without meaning to, unable to keep down food or drink, shortness of breath, or any other symptoms of concern. Patient Language: Albanian Prescriptions: New lidocaine 5 % adhesive patch,medicated 1 patch topical DAILY Qty: 15 0RF Rx Instructions: leave on most painful area for up to 12 hrs cyclobenzaprine 5 mg tablet 5 mg PO TID PRN (Reason: muscle spasm) Qty: 10 0RF No Action cyclobenzaprine 10 mg tablet 10 mg PO TID PRN (Reason: muscle spasm) Qty: 14 0RF ibuprofen 800 mg tablet 800 mg PO TID PRN (Reason: pain) Qty: 20 0RF Follow-up/Referrals: PHYSICIAN,PARTNER INTEGRATION PLANNER [Primary Care Provider, Internal Medicine] Amador Betancur MD [Physician, Family Practice] Referral Note: PRIMARY CARE Stand Alone Forms: Work/School Release IP Time of Disposition: 14:21
[2024-12-17 14:57] VITALS: BP 116/78; PULSE 77; RESP 16; TEMP 36.6; O2SAT 100
== END 2024-12-17 14:59 | disposition home or self-care (01) ==
PROVIDERS: Emergency Provider Physician Assistant
DX: S46.911A Strain of unspecified muscle, fascia and tendon at shoulder and upper arm level, right arm, initial encounter (principal); S76.011A Strain of muscle, fascia and tendon of right hip, initial encounter; S16.1XXA Strain of muscle, fascia and tendon at neck level, initial encounter; X50.0XXA Overexertion from strenuous movement or load, initial encounter
CPT/HCPCS: 71046; 71100; 72040; 72072; 73030; 73502; 96372; 99284; J1885

== ENCOUNTER 2025-01-13 08:43 | Emergency (ER) | payer BC, SELFPAY ==
[2025-01-13 08:50] VITALS: BP 119/79; PULSE 86; RESP 16; TEMP 36.9; O2SAT 99
--- OUTSIDE RECORDS SUMMARY | 2025-01-13 09:04 | XMS_ITS | Clinical Summary ---
Author Organization [facility] Address [address] [place] [id number] Care Team Providers Care Knot Bumper Name Role Phone None, Provider MD Primary [...] Sex Assigned at Female 06/09/2024 2:43 PM LADDER OPERATOR Legal Sex Female 1:01 PM LADDER OPERATOR Gender Identity Not on file Sexual Orientation Not on file Last Filed Vital Signs Vital Sign Reading Time Taken Comments Blood Pressure 115/79 06/16/2024 3:00 PM LADDER OPERATOR Pulse 81 06/16/2024 3:00 PM LADDER OPERATOR Temperature 37.6 C (99.6 F) 06/16/2024 3:00 PM LADDER OPERATOR Respiratory Rate 16 10/20/2021 11:00 AM CDT Oxygen Saturation 98% 10/20/2021 11:00 AM CDT Inhaled Oxygen Concentration - - Weight 62.8 kg (138 lb 6.4 oz) 06/16/2024 3:00 P M LADDER OPERATOR Height 170.2 cm (5' 7) 06/16/2024 3:00 PM LADDER OPERATOR Body Mass Index 21.68 06/16/2024 3:00 PM LADDER OPERATOR Plan of Treatment Health Maintenance Due Date Last Done Comments Cervical Cancer Screening Pap Smear (Age 30 to 64) Every 3 Years 1994 Annual Physical 1997 Hepatitis C 2012 Cervical Cancer Screening Pap with HPV Testing (Age 30 to 64) Every 5 Years 2024 Cervical Cancer Screening with HPV 2024 COVID-19 Vaccine ( season) 2024 DTaP, Tdap and Td Vaccines (8 - Td or Tdap) 09/20/2026 09/20/2016, 01/05/2009, 11/01/1999, Additional history exists Hepatitis B Vaccines Completed 1994, 1994, 1994 HPV Vaccines Completed 01/05/2009, 07/26/2008 Meningococcal Vaccine Aged Out 01/05/2009 No rayo julio eligible based on patient's age to complete this topic PHQ-2 (Physician [place]) Completed 06/16/2024 Meningococcal B Vaccine Aged Out [...] to complete this topic Insurance Care Teams Knot Bumper Relationship Specialty Start Date End Date None, Provider, PCP - General 03/25/21
--- OUTSIDE RECORDS SUMMARY | 2025-01-13 09:04 | XMS_ITS | Clinical Summary ---
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
--- OUTSIDE RECORDS SUMMARY | 2025-01-13 09:04 | XMS_ITS | Clinical Summary ---
Author Organization [facility] Care Team Providers Care Cashier Gambling Name Role Phone Unavailable Primary Care Provider Unavailabl e Social History Tobacco Use Types Packs/Day Years Used Date Smoking Tobacco: Never Assessed Comments Unknown Sex and Gender Information Value Date Recorded Sex Assigned at Not on file Legal Sex Female 7:05 AM STAFF TOXICOLOGIST Gender Identity Not on file Sexual Orientation [...]
--- OUTSIDE RECORDS SUMMARY | 2025-01-13 09:04 | XMS_ITS | Encounter Summary ---
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 PERFORMED BY NUCLEIC ACID AMPLIFICATION PCR FIRST TEST NO 10/17/2021 10:44 AM CDT [facility] EMPLOYED IN HEALTHCARE NO 10/17/2021 10:44 AM CDT [facility] SYMPTOMATIC DEFINED BY CDC NO 10/17/2021 10:44 AM CDT [facility] HOSPITALIZATION STATUS NO 10/17/2021 10:44 AM CDT [facility] PATIENT IN ICU NO 10/17/2021 10:44 AM CDT [facility] RESIDENT OF [facility] NO 10/17/2021 10:44 AM CDT [facility] NOT 10/17/2021 10:44 AM CDT [facility] NASAL STRUCTURE / Unknown 10/17/2021 9:31 AM CDT us Heriberto Harp MD MICROBIOLOGY - GENERAL ORDERABL ES Final Result [facility] [address] [place] [address], [place] [phone] [facility] [address] [place] [address], [place] [phone] documented in this encounter Visit Diagnoses Diagnosis Preop examination- Primary Preoperative examination, unspecified documented in this encounter Additional Health Concerns Infection Onset Date Last Indicated Resolved Time COVID-19 Rule Out 10/17/2021 10/17/2021 10/17/2021 8:05 PM CDT documented as of this encounter Care Teams Box Spinner Relationship Specialty Start Date End Date None, Provider, PCP - General 03/25/21 documented as of this encounter
--- OUTSIDE RECORDS SUMMARY | 2025-01-13 09:04 | XMS_ITS | Encounter Summary ---
Author Organization [facility] Address [address] [place] [address] Care Team Providers Care Director Of Trauma Name Role Phone Unavailable Primary Care Provider Unavailabl e Plan of Treatment Not on file Visit Diagnoses Not on file Insurance [facility] [place] [facility] [place] PPO
--- OUTSIDE RECORDS SUMMARY | 2025-01-13 09:04 | XMS_ITS | Clinical Summary ---
Author Organization [facility] Address [address] [place] [address] Care Team Providers Care Youth Teacher Name Role Phone Unavailable Primary Care Provider Unavailabl e Source Comments [facility],non-owned Affiliates and Associated Physician Practices is amultiple site organization consisting of ambulatory clinics and hospital sitesin [place], [place], [place] and [place]. This disclosure is being madepursuant to the Care Everywhere program and may not contain all information available regarding this patient. Last updated 18.[employer] [facility] Allergies No known active allergies Medications * Be aware that medications may not be up to date on this document. Alwaysverify current medications with the patient. 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 Gender Identity Not on file Sexual [...] 11:30 AM CDT Height 170.2 cm (5' 7) 09/06/2016 1:30 PM CDT Body Mass Index 22.08 09/06/2016 1:30 PM CDT Plan of Treatment Health Maintenance Due Date Last Done Comments HIV SCREENING 2009 HEPATITIS C SCREENING 04/12/2012 DTAP/TDAP/TD VACCINES (1 - Tdap) 2013 HEPATITIS B VACCINE (1 of 3 - 19+ 3-dose series) 2013 PAP SMEAR 2015 HPV VACCINE (1 - 3-dose SCDM series) 2021 DEPRESSION SCREENING 04/22/2024 COVID-19 VACCINE (1 - 2023-2 5 season) 2024 INFLUENZA VACCINE (#1) 2024 ZOSTER VACCINE (1 of 2) 2044 [...] patient's age to complete this topic Insurance [facility] SELF PAY NO INSURANCE Member Subscriber Plan / Payer (Ef fective for All Dates) Name:Atiya Dyer Member ID:Not on file Relation to Subscriber:Not on file Name:ATIYA DYER Subscriber ID:Not on file Address: [address] [place] [address] Payer ID:Not on file Group ID:Not on file Type:Self Pay Address: [place], [place] [facility] SELF PAY NO INSURANCE Member Subscriber Plan / Payer (Ef fective for All Dates) Name:Atiya Dyer Member ID:Not on file Relation to Subscriber:Not on file Name:ATIYA DYER Subscriber ID:Not on file Address: [address] [place] [address] Payer ID:Not on file Group ID:Not on file Type:Self Pay Address: [place], [place] Advance Directives Documents on File Type Date Recorded Patient Ict Educator Expl 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
--- OUTSIDE RECORDS SUMMARY | 2025-01-13 09:04 | XMS_ITS | Clinical Summary ---
Author Organization [facility] Address [address] [place] [address] Care Team Providers Care Lodge Attendant Name Role Phone Unavailable Primary Care Provider [...] Mouth 1994 Dental X-Ray: Panoramic 1994 Insurance [facility] [place] PPO
--- NOTE | 2025-01-13 09:21 | ED.GENADULT ---
HPI - General Adult General Chief complaint: Unspecified Stated complaint: lumps on neck Time Seen by Provider: 01/13/25 08:52 History of Present Illness HPI narrative: Marycarmen Patton is a 29-year-old female with reports of noticing a swelling nodule to the back of her neck and 1 on the side of her neck both on the right side. She denies having any sore throat no URI symptoms no ear pain no shortness of breath no chest pain. No recent fevers or chills. Related Data Allergies Allergy/AdvReac Type Severity Reaction Status Date / Time No Known Allergies Allergy Verified 01/13/25 08:52 Review of Systems Review of Systems: All systems reviewed & are unremarkable except as noted in HPI and below PMFSH Past Medical History Medical History No significant medical problems Surgical History Surgical History H/O excision of ganglion cyst History of hysteroscopy D & C Hx of appendectomy Social History Social History Smoking status: Never smoker Alcohol intake: current Alcohol use details: 1 PER MONTH Substance use: never Do You Feel Safe in your Home?: Yes Lack of Transportation: No Lack of Food: Never True Current Housing: I Have Housing Concerned About Future Housing: No Difficulty Paying Gas/Electric Bills: No Difficulty Paying for Meds: No Currently Unemployed: No Education: High School Diploma/GED Difficulty w/ Childcare or Family Care: No Living arrangements: with family Occupation/Education: occupation Gender identity (if verbalized by the patient): Female Exam Narrative: GENERAL: Well-appearing, well-nourished, and in no acute distress. HEAD: Normocephalic, atraumatic. EYES: PERRLA and EOMI. ENT: Nares clear, no rhinorrhea or epistaxis. Mucous membranes moist. Oropharynx without tonsillar hypertrophy exudate or other lesions. NECK: Supple. + lymphadenopathy right cervical region two palpated CHEST: Clear to auscultation. No respiratory distress. No wheezes rales or rhonchi HEART: Regular rate and rhythm. No murmur heard. Normal peripheral pulses. ABDOMEN: Soft, nontender, nondistended, normal active bowel sounds. EXTREMITIES: Normal range of motion. No edema. SKIN: Warm, dry, no rash. NEURO: No focal deficits. Alert and oriented x3. PSYCH: Normal mood and affect. Course Vital Signs Vital signs: Vital Signs Temperature 36.9 C 01/13/25 08:50 Pulse Rate 86 01/13/25 08:50 Respiratory Rate 16 01/13/25 08:50 Blood Pressure 119/79 01/13/25 08:50 Pulse Oximetry 99 01/13/25 08:50 Oxygen Delivery Room Air 01/13/25 08:50 Temperature 36.9 C 01/13/25 08:50 Pulse Rate 86 01/13/25 08:50 Respiratory Rate 16 01/13/25 08:50 Blood Pressure 119/79 01/13/25 08:50 Pulse Oximetry 99 01/13/25 08:50 Oxygen Delivery Room Air 01/13/25 08:50 Medical Decision Making MDM Narrative Medical decision making narrative: 29-year-old female who presents with complaints of noticing swelling nodules the right side of her neck about 5 days ago. On exam I am able to have palpate to lymph nodes that are swollen, no erythema no evidence of infection. She denies having any acute URI symptoms no fevers no chills no sore throat no ear pain. Other nodes this could just be a normal physiological process that her venous system was working on however if they become more enlarged for they do not go away in a couple weeks that she will need to follow-up with her primary care doctor. While she is here we will check basic labs. CBC-no leukocytosis hemoglobin 11.2 hematocrit 31.3 these are similar results as previous CBC CMP sodium 134 creatinine 0.67 unremarkable Patient updated on lab results and plan for DC home with PCP follow-up. Reassured her that this is likely a normal physiological process of her immune system however if they do not go down more they become larger she will need to have outpatient imaging for evaluation. She is comfortable and agreeable with this plan. Medical Records Medical records reviewed: Yes I reviewed the external patient's medical records. Vital Signs Vital Signs: Vital Signs Temperature 36.9 C 01/13/25 08:50 Pulse Rate 86 01/13/25 08:50 Respiratory Rate 16 01/13/25 08:50 Blood Pressure 119/79 01/13/25 08:50 Pulse Oximetry 99 01/13/25 08:50 Oxygen Delivery Room Air 01/13/25 08:50 Temperature 36.9 C 01/13/25 08:50 Pulse Rate 86 01/13/25 08:50 Respiratory Rate 16 01/13/25 08:50 Blood Pressure 119/79 01/13/25 08:50 Pulse Oximetry 99 01/13/25 08:50 Oxygen Delivery Room Air 01/13/25 08:50 Vitals reviwed by me Lab Data Lab results reviewed: Yes I reviewed the patient's lab results. 01/13/25 09:23 01/13/25 09:23 Labs: Lab Results 01/13/25 Range/Units 09:23 WBC 6.9 (4.5-10.0) K/mm3 RBC 3.60 L (4.2-5.4) M/mm3 Hgb 11.2 L (12.0-15.0) g/dL Hct 31.3 L (37.0-47.0) % MCV 86.9 (80-100) fl MCH 31.1 (26-34) pg MCHC 35.8 (32-36) g/dl RDW 13.0 (11.5-14.5) % Plt Count 223 (150-375) k/mm3 MPV 8.5 (7.4-10.4) fl Immature Gran % (Auto) 0.1 (0-0.5) % Neut % (Auto) 48.7 (45.5-73.1) % Lymph % (Auto) 41.0 (18.3-44.2) % [place] % (Auto) 9.2 H (2.6-8.5) % Eos % (Auto) 0.7 (0-4.4) % Baso % (Auto) 0.3 (0.2-1.2) % Lymph # (Auto) 2.81 (0.9-3.2) K/mm3 [place] # (Auto) 0.6 (0.1-0.6) K/mm3 Eos # (Auto) 0.1 (0-0.3) K/mm3 Baso # (Auto) 0.0 (0.0-0.1) K/mm3 Abs Immat Gran (auto) 0.01 (0.00-0.031) K/mm3 Absolute Neuts (auto) 3.3 (1.3-6.7) K/mm3 Absolute Nucleated RBC 0.000 (0.0-0.012) K/mm3 Nucleated RBC % 0.0 (0.0-0.2) % Sodium 134 L (137-145) mmol/L Potassium 3.8 (3.4-5.0) mmol/L Chloride 106 (98-107) mmol/L Carbon Dioxide 25 (22-30) mmol/L Anion Gap 3 L (4-12) mmol/L BUN 15 (7-17) mg/dL Creatinine 0.67 L (0.7-1.0) mg/dL Estim Creat Clear Calc 102 ml/min Estimated GFR > 60 (59 - ) Glucose 94 (65-110) mg/dL Calcium 8.4 (8.4-10.2) mg/dL Total Bilirubin 0.5 (0.2-1.3) mg/dL AST 19 (14-36) U/L ALT 11 (6-35) U/L Alkaline Phosphatase 46 (38-126) U/L Total Protein 6.3 (6.3-8.2) g/dL Albumin 3.6 (3.5-5.1) g/dL Discharge Plan Discharge Clinical Impression: Lymphadenopathy Patient Disposition: Home Condition: Stable Instructions: Antibiotic Form Additional Instructions: Your lab work is stable today and consistent with previous labs even had drawn before. With the swelling lymph nodes that you, these have should improve on their own and likely a sign that your immune system is working. Please follow up with her primary doctor in the next week so they can be aware of this. If they do not improve or they become any larger your primary care doctor may want to order an outpatient ultrasound. Patient Language: Cameroonian Prescriptions: No Action cyclobenzaprine 10 mg tablet 10 mg PO TID PRN (Reason: muscle spasm) Qty: 14 0RF ibuprofen 800 mg tablet 800 mg PO TID PRN (Reason: pain) Qty: 20 0RF lidocaine 5 % adhesive patch,medicated 1 patch topical DAILY Qty: 15 0RF Rx Instructions: leave on most painful area for up to 12 hrs cyclobenzaprine 5 mg tablet 5 mg PO TID PRN (Reason: muscle spasm) Qty: 10 0RF Follow-up/Referrals: Amador Betancur MD [Primary Care Provider, Family Practice] - 3 Days Time of Disposition: 10:24
[2025-01-13 09:30] LABS: Hematocrit 31.3 % (37.0-47.0); Hemoglobin 11.2 g/dL (12.0-15.0); Immature Granulocyte Percent A 0.1 % (0-0.5); Lymphocytes Absolute Auto 2.81 K/mm3 (0.9-3.2); Mean Corpuscular HGB Conc 35.8 g/dl (32-36); Mean Corpuscular Hemoglobin 31.1 pg (26-34); Mean Corpuscular Volume 86.9 fl (80-100); Nucleated Red Blood Cells Absolute Auto 0.000 K/mm3 (0.0-0.012); Nucleated Red Blood Cells Perc 0.0 % (0.0-0.2); Platelet Count Result 223 k/mm3 (150-375); Red Blood Count 3.60 M/mm3 (4.2-5.4); White Blood Count 6.9 K/mm3 (4.5-10.0)
--- OUTSIDE RECORDS SUMMARY | 2025-01-13 09:43 | XMS_ITS | Clinical Summary ---
Author Organization [facility] Health Address [address] [place] [address] Care Team Providers Care Elevator Builder Name Role Phone Unavailable Primary Care Provider [...] Mouth 1994 Dental X-Ray: Panoramic 1994 Insurance [facility] [place] PPO
--- OUTSIDE RECORDS SUMMARY | 2025-01-13 09:43 | XMS_ITS | Encounter Summary ---
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 PERFORMED BY NUCLEIC ACID AMPLIFICATION PCR FIRST TEST NO 10/17/2021 10:44 AM CDT [facility] EMPLOYED IN HEALTHCARE NO 10/17/2021 10:44 AM CDT [facility] SYMPTOMATIC DEFINED BY CDC NO 10/17/2021 10:44 AM CDT [facility] HOSPITALIZATION STATUS NO 10/17/2021 10:44 AM CDT [facility] PATIENT IN ICU NO 10/17/2021 10:44 AM CDT [facility] RESIDENT OF [facility] NO 10/17/2021 10:44 AM CDT [facility] NOT 10/17/2021 10:44 AM CDT [facility] NASAL STRUCTURE / Unknown 10/17/2021 9:31 AM CDT us Heriberto Harp MD MICROBIOLOGY - GENERAL ORDERABL ES Final Result [facility] [address] [place] [address], [place] [phone] [facility] [address] [place] [address], [place] [phone] documented in this encounter Visit Diagnoses Diagnosis Preop examination- Primary Preoperative examination, unspecified documented in this encounter Additional Health Concerns Infection Onset Date Last Indicated Resolved Time COVID-19 Rule Out 10/17/2021 10/17/2021 10/17/2021 8:05 PM CDT documented as of this encounter Care Teams Foaming Machine Operator Relationship Specialty Start Date End Date None, Provider, PCP - General 03/25/21 documented as of this encounter
--- OUTSIDE RECORDS SUMMARY | 2025-01-13 09:43 | XMS_ITS | Clinical Summary ---
Author Organization [facility] Address [address] [place] [address] Care Team Providers Care Damage Assessor Name Role Phone None, Provider MD Primary [...] Sex Assigned at Female 06/09/2024 2:43 PM BAKE ROOM WORKER Legal Sex Female 1:01 PM BAKE ROOM WORKER Gender Identity Not on file Sexual Orientation Not on file Last Filed Vital Signs Vital Sign Reading Time Taken Comments Blood Pressure 115/79 06/16/2024 3:00 PM BAKE ROOM WORKER Pulse 81 06/16/2024 3:00 PM BAKE ROOM WORKER Temperature 37.6 C (99.6 F) 06/16/2024 3:00 PM BAKE ROOM WORKER Respiratory Rate 16 10/20/2021 11:00 AM CDT Oxygen Saturation 98% 10/20/2021 11:00 AM CDT Inhaled Oxygen Concentration - - Weight 62.8 kg (138 lb 6.4 oz) 06/16/2024 3:00 P M BAKE ROOM WORKER Height 170.2 cm (5' 7) 06/16/2024 3:00 PM BAKE ROOM WORKER Body Mass Index 21.68 06/16/2024 3:00 PM BAKE ROOM WORKER Plan of Treatment Health Maintenance Due Date [...] age to complete this topic PHQ-2 (Physician [place]) Completed 06/16/2024 Meningococcal B Vaccine Aged Out [...] to complete this topic Insurance Care Teams Damage Assessor Relationship Specialty Start Date End Date None, Provider, PCP - General 03/25/21
--- OUTSIDE RECORDS SUMMARY | 2025-01-13 09:43 | XMS_ITS | Encounter Summary ---
Author Organization [facility] Health Address [address] [place] [address] Care Team Providers Care Air Conditioning Supervisor Name Role Phone Unavailable Primary Care Provider Unavailabl e Plan of Treatment Not on file Visit Diagnoses Not on file Insurance [facility] [place] PPO
--- OUTSIDE RECORDS SUMMARY | 2025-01-13 09:43 | XMS_ITS | Clinical Summary ---
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
--- OUTSIDE RECORDS SUMMARY | 2025-01-13 09:43 | XMS_ITS | Clinical Summary ---
Author Organization [email or web address] Address [address] [place] [address] Care Team Providers Care Ramp Flight Attendant Name Role Phone Unavailable Primary Care Provider Unavailabl e Source Comments [email or web address],non-owned Affiliates and Associated Physician Practices is amultiple site organization consisting of ambulatory clinics and hospital sitesin [place], [place], [place] and [place]. This disclosure is being madepursuant to the Care Everywhere program and may not contain all information available regarding this patient. Last updated 18.[email or web address] Allergies No known active allergies Medications * Be aware that medications may not be up to date on this document. Alwaysverify current medications with the patient. 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 Gender Identity Not on file Sexual [...] patient's age to complete this topic Insurance [facility] [employer] NO INSURANCE Member Subscriber Plan / Payer (Ef fective for All Dates) Name:Atiya Dyer Member ID:Not on file Relation to Subscriber:Not on file Name:ATIYA DYER Subscriber ID:Not on file Address: [address] [place] [address] Payer ID:Not on file Group ID:Not on file Type:Self Pay Address: [place], [place] [facility] [employer] NO INSURANCE Member Subscriber Plan / Payer (Ef fective for All Dates) Name:Atiya Dyer Member ID:Not on file Relation to Subscriber:Not on file Name:ATIYA DYER Subscriber ID:Not on file Address: [address] [place] [address] Payer ID:Not on file Group ID:Not on file Type:Self Pay Address: [place], [place] Advance Directives Documents on File Type Date Recorded 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
--- OUTSIDE RECORDS SUMMARY | 2025-01-13 09:43 | XMS_ITS | Clinical Summary ---
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
[2025-01-13 09:52] LABS: Alanine Aminotransferase 11 U/L (6-35); Albumin Level 3.6 g/dL (3.5-5.1); Alkaline Phosphatase 46 U/L (38-126); Anion Gap 3 mmol/L (4-12); Aspartate Amino Transferase 19 U/L (14-36); Bilirubin,Total 0.5 mg/dL (0.2-1.3); Blood Urea Nitrogen 15 mg/dL (7-17); Calcium 8.4 mg/dL (8.4-10.2); Carbon Dioxide 25 mmol/L (22-30); Chloride 106 mmol/L (98-107); Estimated CRCL calculation 102 ml/min; Estimated Glomerular Filt Rate > 60; Glucose 94 mg/dL (65-110); Potassium 3.8 mmol/L (3.4-5.0); Sodium 134 mmol/L (137-145); Total Protein 6.3 g/dL (6.3-8.2)
== END 2025-01-13 11:13 | disposition home or self-care (01) ==
PROVIDERS: Emergency Provider Nurse Practitioner Family; PCP Emergency Medicine
DX: R59.1 Generalized enlarged lymph nodes (principal)
CPT/HCPCS: 36415; 80053; 85025; 99283